=== PATIENT | male | born 2000 | race Caucasian/White ===

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

== ENCOUNTER 2024-12-06 14:31 | Emergency (ER) | payer BC, SELFPAY ==
[2024-12-06 14:32] VITALS: BP 128/90; PULSE 92; RESP 18; TEMP 36.6; O2SAT 99; BMI 27.1
--- NOTE | 2024-12-06 14:38 | RAD_ITS ---
EXAM: XR Right Tibia and Fibula, 2 Views CLINICAL INDICATION: INJURY TECHNIQUE: Frontal and lateral views of the right tibia and fibula. COMPARISON: No relevant prior studies available. FINDINGS: BONES/JOINTS: Unremarkable. No acute fracture. No dislocation. SOFT TISSUES: Unremarkable. No radiopaque foreign body. RAD/Tibia & Fibula 2 Views IMPRESSION: No acute fracture. Reading Location: [id number]
--- NOTE | 2024-12-06 14:38 | RAD_ITS ---
EXAM: XR Right Ankle Complete, 3 or More Views CLINICAL INDICATION: INJURY TECHNIQUE: Frontal, lateral and oblique views of the right ankle. COMPARISON: No relevant prior studies available. FINDINGS: BONES/JOINTS: See below. SOFT TISSUES: Soft tissue swelling without acute fracture. RAD/Ankle min 3 Views IMPRESSION: 1. Soft tissue swelling without acute fracture. 2. If symptoms persist, further evaluation with CT is recommended. Reading Location: [id number]
--- NOTE | 2024-12-06 15:33 | ED.VIS.LOWEX ---
HPI History of Present Illness HPI Narrative: Patient presents with right ankle injury that occurred last night. Patient states he was standing on a slope and somebody stepped up onto his knee. Patient states that his ankle hyperdorsiflexed. Patient states the pain has been constant since last night. Patient states it is worse with walking. Patient describes it as stabbing. Patient states nothing makes it better. Patient denies any paresthesias or weakness. Patient denies any other injuries. Chief Complaint: Lower Extremity Injury Informant: patient Onset/Context/Timing Onset: Yesterday Context: Sudden Onset Timing: Continuous Quality of Pain: Stabbing Location: Right ankle Worsened by: Walking Relieved by: Nothing Associated Symptoms Associated Symptoms: Negative for Parasthesia, Weakness or Loss of Funtion PFSH PFS Medical History (Updated 12/06/24 @ 15:[address] Reinaldo Evans DO) Asthma Superior labrum [id number] (SLAP) tear of shoulder Home Medications ?Medication ?Instructions ?Recorded ?Last Taken ?Type albuterol sulfate 90 mcg/actuation 1 puff inhalation Q6H PRN PRN 11/11/16 Unknown History aerosol inhaler (Ventolin HFA) Asthma fluticasone propionate 50 50 mcg IH PRN PRN Asthma 11/11/16 Unknown History mcg/actuation blister powder for inhalation (Flovent Diskus) montelukast 4 mg chewable tablet 4 mg PO DAILY 11/11/16 Unknown History (Singulair) ondansetron 4 mg disintegrating 4 mg PO Q8H PRN PRN Nausea #10 tabs 04/07/19 Unknown Rx tablet Allergy/AdvReac Type Severity Reaction Status Date / Time amoxicillin trihydrate (From Allergy Rash Verified 12/06/24 14:33 Augmentin) potassium clavulanate (From Allergy Rash Verified 12/06/24 14:33 Augmentin) Surgical History (Updated 12/06/24 @ 15:[address] Reinaldo Evans DO) Hx of shoulder surgery Social History Smoking Status: Never smoker ROS ROS ED Constitutional Constitutional ED: Denies chills or fever(s) Eyes Eyes: Denies blurry vision or change in vision ENT ENT ED: Denies rhinorrhea or sore throat Cardiovascular Cardiovascular: Denies chest pain or palpitations Respiratory/Chest Respiratory/Chest: Denies cough or dyspnea Gastrointestinal Gastrointestinal: Denies nausea or vomiting Genitourinary Genitourinary ED: Denies dysuria or hematuria Musculoskeletal Musculoskeletal: Denies back pain or neck pain Integumentary Denies abscess or rash Neurologic Neurologic: Denies headache(s) or weakness Allergic/Immunologic Allergic/Immunologic ED: Denies mouth swelling or urticaria EXAM Physical Exam Const Vital Signs: 12/06/24 14:32 Temperature 98 F Temperature Source Oral Pulse Rate 92 Respiratory Rate 18 Blood Pressure 128/90 H Blood Pressure Mean 102 Pulse Ox 99 Oxygen Delivery Method Room Air Positive well nourished and well developed General Appearance ED: well developed and NAD HEENT Reports moist mucous membranes normocephalic and atraumatic Neck full ROM and supple Extremity Extremity Narrative: There is tenderness over the right ankle. There is no edema or ecchymosis. There is no bony crepitus or step-off. There is no tenderness over the fifth metatarsal. There is no tenderness over the proximal fibula. Range of motion was limited in all motions of the right ankle secondary to pain. There is good pedal pulse noted. Capillary refill is less than 2 seconds in all digits. Sensation was intact to light touch in all digits. Neuro oriented x3, CN's II-XII intact bilaterally, moves all extremities and no sensory deficits noted Sensorium / Orientation: alert Motor Exam: strength 5/5 throughout Psych mental status grossly normal MDM MDM MDM Narrative Medical decision making narrative: Differential diagnosis includes sprain, fracture, and contusion. X-rays of the right ankle and right tibia and fibula will be obtained to assess for fracture. Radiography Diagnostic Testing: Clinical Impression(s) from Imaging Studies Ankle X-Ray 12/06/24 14:38 IMPRESSION: 1. Soft tissue swelling without acute fracture. 2. If symptoms persist, further evaluation with CT is recommended. Reading Location: [facility] Tibia/Fibula X-Ray 12/06/24 14:38 IMPRESSION: No acute fracture. Reading Location: [facility] X-rays of the right tibia and fibula were obtained. There are 2 views. On my independent interpretation, there is no acute fracture. There is no soft tissue swelling noted. Radiologist also interpreted the x-rays and agrees. X-rays of the right ankle were obtained. There are 3 views. On my independent interpretation, there is no acute fracture or dislocation noted. There is some soft tissue swelling noted. Radiologist also interpreted the x-rays and agrees. Treatment and Re-Evaluation Narrative: Patient and mother were advised of his findings. Patient was instructed to ice and elevate the right ankle. Patient was instructed to use Tylenol or ibuprofen as needed for pain. Patient was given a walking boot. Patient was instructed to follow-up with his primary care physician in 5 to 7 days. Patient and mother understood and were agreeable with the plan. All questions were answered. Discharge Plan Triage Chief Complaint: Lower Extremity Injury ED Provider: Reinaldo Evans Dx/Rx/DC Orders Clinical Impression: Right ankle sprain, History of asthma Instructions: ED Ankle Sprain (Adult) Prescriptions: No Action fluticasone propionate [Flovent Diskus] 50 MCG blister with device 50 mcg IH PRN PRN (Reason: Asthma) montelukast [Singulair] 4 MG tablet,chewable 4 mg PO DAILY albuterol sulfate [Ventolin HFA] 1 INHALER inhaler 1 puff inhalation Q6H PRN PRN (Reason: Asthma) ondansetron 4 MG tablet 4 mg PO Q8H PRN PRN (Reason: Nausea) Qty: 10 0RF Primary Care Provider: Care Physician,No Primary Referrals: Jackeline Hinton MD [Non-Staff] - 5-7 Days Print Language: Turkish Disposition Disposition: Home, Self Care
--- OUTSIDE RECORDS SUMMARY | 2024-12-06 15:42 | XMS RPT_ITS | CCD ---
Author Organization [facility] Care Team Providers Care Chief Supply Chain Officer Name Role Phone Mary Jane WICK, Jackeline Brewster Primary Care Provider Allergies Allergy Classification Reported Allergen(s) Allergy Type Date of Onset Reaction(s) Facility (3 sources) Amoxicillin / Clavulanate Drug Allergy 05-18-2011 Hives [facility] Work Phone: (3 sources) Chicot fruit Propensity to adverse reactions to drug 08-14-2014 Unknown [facility] (3 sources) Seasonal allergy Propensity to adverse reactions 10-14-2009 Intolerance [facility] Work Phone: Medications Completed/Discontinued Medications Medication Drug Class(es) Dates Sig (Normalized) Sig (Original) [id number] 200 actuat albuterol 0.09 mg/actuat metered dose inhaler (6 sources) beta2-Adrenergic Agonist Start: 02-12-2019 albuterol (PROVENTIL) 2.5 mg /3 mL (0.083 %) nebulizer solution 1 NEBULE EVERY 4 HOURS PRN WHEEZING. TIGHT COUGH 50 Vial 0 02/12/2019 Active Start: 02-12-2019 take 2 puff(s) by in halation every four hours as needed for cough albuterol HFA (PROVENTIL HFA, VENTOLIN HFA) 90 mcg/actuation inhaler Inhale 2 Puffs as instructed every 4 hours as needed for Wheezing/Shortness of Breath (tight cough). 1 Inhaler 1 02/12/2019 Active Comment on above: Inhale 2 Puffs as in structed every 4 hours as needed for Wheezing/Shortness of Breath (tight cough). 1 NEBULE EVERY 4 JOSIANE RS PRN WHEEZING. TIGHT COUGH 120 actuat fluticasone propionate 0.044 mg/actuat metered dose inhaler (3 sources) Corticosteroid Start: take 2 puff(s) by mouth twice daily fluticasone (FLOVENT) 44 mcg/actuation inhaler Inhale 2 Puffs as instructed twice daily. Rinse mouth and mask after use 1 Inhaler 3 02/12/2019 Active Comment on above: Inhale 2 Puffs as in structed twice daily. Rinse mouth and mask after use omeprazole 20 mg delayed release oral capsule (3 sources) Proton Pump Inhibitor Start: End: take 1 capsule by mouth once daily omeprazole (PRILOSEC) 20 mg capsule Take 1 capsule by mouth once daily. 30 capsule 2 07/02/2019 2021 Discontinued Comment on above: Take 1 capsule by mo [facility] once daily. sertraline 25 mg oral tablet (3 sources) Serotonin Reuptake Inhibitor Start: End: take 1 tablet by mouth once daily sertraline (ZOLOFT) 25 mg tablet Take 1 tablet by mouth once daily. 30 tablet 1 07/17/2019 2021 Discontinued Comment on above: [facility] Problems Active Problems Problem Classification Problem Date Documented Da te Episodic/Chronic Anxiety disorders (1 source) Mixed anxiety and depressive disorder; Translations: [Anxiety disorder, unspecified] Chronic Asthma (6 sources) Asthma; Translations: [Unspecified asthma, uncomplicated] Onset: 05-22-2012 05-22-2012 Chronic Past or Other Problems Problem Classification Problem Date Documented Da te Episodic/Chronic Other non-traumatic joint disorders (3 sources) Instability of right shoulder joint; Translations: [Other instability, right shoulder] Onset: 02-16-2020 02-16-2020 Episodic Other nutritional; endocrine; and metabolic disorders (3 sources) Childhood obesity; Translations: [Body mass index (BMI) pediatric, greater than or equal to 95th percentile for age] Onset: 12-05-2018 12-05-2018 Episodic Sprains and strains (3 sources) Sprain of shoulder; Translations: [Unspecified sprain of right shoulder joint, initial encounter] Onset: 11-24-2019 11-24-2019 Episodic Results Test Name Value Interpretation Reference Range Facility OV 2021 CNOV Office Visit (PEDSWS ) MILLSGABINO Kwong ([id number]) 02 M NFR Date Time Provider Department 08/18/21 10:00 AM JACKELINE SALINAS During your visit today, we recorded the following information about you: Temperature Pulse Respiration Blood pressure 97.9 degrees 64/minute 12/minute 132/70 Weight Height 92.7 kg 1.785 m Jackeline Salinas MD 08/19/2021 8:51 AM Signed CC-Depression (Seen Crescencio Forde yesterday and he recommended to come in too get started on medication) HPI 21 year-old here for treatment of depression and anxiety. Patient has had anxiety for several years but over the past 6 months has also started to experience depression symptoms. He has been working with psychologist Crescencio Gan, for therapy and is seeing him every other week. He has been in therapy with him for a few months. Recently they discussed starting a depression medication for him He has not wanted to start medications in the past but at this point does feel like it would be helpful. He has not had any suicide attempts. Occasionally he has had some suicidal ideation, last was about a week and a half ago. He does not have a plan for suicide. Patient graduated from high school and is currently working full-time at [employer]. Patient has had the following symptoms of depression for more than 2 weeks. 1.Depressed mood (feels sad, empty, hopeless (irritability) Yes. 2.Diminished interest in almost all activities most all days (apathy) Yes. 3.Significant weight loss or weight gain, decrease or increase in appetite daily No. 4.Difficulty falling asleep or staying asleep, or other sleep problems NA. 5.Psychomotor agitation or retardation?observed by others NA. 6.Fatigue or loss of energy most days Yes. 7.Feelings of worthlessness this or excessive or inappropriate guilt Yes. 8.Diminished ability to think or concentrate NA. 9. Recurrent thoughts of (not fear of dying) recurrent suicidal ideation without a specific plan or suicide attempt or specific plan for committing suicide No. Patient has had the following symptoms of anxiety occurring most days for over 6 months: Excessive anxiety or worry about many things including school, work or other?Yes. Are the above symptoms causing significant distress or impairment in social, occupational or academic areas? Yes. Any other reason for above symptoms (substance abuse, other medical condition)? NA. Other any other depressive disorder in patient? ( ex. Delusional disorder, schizophrenia etc. ) No. Any other anxiety disorder impatient (PTSD, anorexia, separation anxiety, situational anxiety) Family history?strong family history of anxiety and depression. No schizoaffective or bipolar disorders in the family. FAMILY HISTORY Problem Relation Age of Onset - Diabetes Paternal Grandfather - Hypertension Maternal Grandfather in 2011 - other (Rodriguez Parkinson White) Maternal Grandfather IMP Anxiety and depression (primary encounter diagnosis) PLAN Patient has signed medical release for communication with Crescencio andrade. We have called and left a message for them to send us his medical records The following assessments were completed, scored and reviewed with patient and family PHQ9- 10 FABIO 7- 10 Reviewed concept of depression and anxiety as biochemical imbalance of neurotransmitters and rationale for treatment. Instructed patient to contact office or [id number] after-hours promptly should condition worsen or any new symptoms appear. Reviewed choice of SSRI or SNRI. Discussed side effects, expected length of treatment, onset of action and serotonin withdrawal syndrome. Discussed in detail with patient and parent the FDA black box warning regarding the risk of increased suicidal ideation after starting on an SSRI in adolescents and patient agreed she would communicate this with parents, myself or other trusted adult if she felt this was happening. If applicable, reviewed suicide precautions, suicide risks and provided emergency numbers for [facility] psychiatric intake response Center ([facility]), [facility] 24 hour response number and suicide text [place] Hotline and 988 Psychotherapy recommended: Yes. Return visit in 3 week(s). Jackeline Salinas MD I spent a total of 40 minutes on the date of the service which included preparing to see the patient, [id number] patient care, completing clinical documentation, obtaining and/or reviewing separately obtained history, performing a medically appropriate examination, counseling and educating the patient/family/[facility], ordering medications, tests, or procedures, communicating with other HCPs (not separately reported), independently interpreting results (not separately reported), communicating results to the patient/family/caregiv er and care coordination (not separately rep (more content not included)... [facility] CNPMarissa 08-15-2021 CNPN Telephone (PEDSWS) GABINO MILLS ([id number]) 02 M NFR Date Time Provider Department 08/15/21 JACKELINE SALINAS PEDSWS During your visit today, we recorded the following information about you: Francesco Hawley RN 08/15/2021 4:46 PM Signed Mother calls stating that patient has been having issues with depression and would like to discuss re-starting on a medication. Patient is not currently with mother. Advised that we would need patient present to perform further triage and guidance. Mother voiced understanding and will have patient call back later. Francesco Hawley RN Allergies As of Date: 08/15/2021 Noted Allergy Reaction SEASONAL ALLERGIES 10/14/2009 5 - Intolerance Comments: Mother states that child has itchy,watery eyes and sneezing with the change of seasons. AUGMENTIN (AMOXICILLIN-POT CLAVUL*05/18/2011 4 - Hives Comments: 11/07 CITRUS AND DERIVATIVES 08/14/2014 16 - Unknown Comments: On elimination diet; no citrus per mother at this time Date Reviewed: 03/23/2020 Reviewed by: Cleo ([email or web address]) Yfn - Fully Assessed Reason for Visit: Depression [32] Prescriptions as of 08/15/2021 - sertraline (ZOLOFT) 25 mg tablet Take 1 tablet by mouth once daily. - omeprazole (PRILOSEC) 20 mg capsule Take 1 capsule by mouth once daily. - fluticasone (FLOVENT) 44 mcg/actuation inhaler Inhale 2 Puffs as instructed twice daily. Rinse mouth and mask after use - albuterol HFA (PROVENTIL HFA, VENTOLIN HFA) 90 mcg/actuation inhaler Inhale 2 Puffs as instructed every 4 hours as needed for Wheezing/Shortness of Breath (tight cough). - albuterol (PROVENTIL) 2.5 mg /3 mL (0.083 %) nebulizer solution 1 NEBULE EVERY 4 HOURS PRN WHEEZING. 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 Feels very good, more secure, minimal pain. Current Outpatient Medications on File Prior to Visit Medication Sig - albuterol HFA (PROVENTIL HFA, VENTOLIN HFA) 90 mcg/actuation inhaler Inhale 2 Puffs as instructed every 4 hours as needed for Wheezing/Shortness of Breath (tight cough). - albuterol (PROVENTIL) 2.5 mg /3 mL (0.083 %) nebulizer solution 1 NEBULE EVERY 4 HOURS PRN WHEEZING. TIGHT COUGH - sertraline (ZOLOFT) 25 mg tablet Take 1 tablet by mouth once daily. - omeprazole (PRILOSEC) 20 mg capsule Take 1 capsule by mouth once daily. (Patient taking differently: Take 20 mg by mouth as needed. ) - fluticasone (FLOVENT) 44 mcg/actuation inhaler Inhale 2 Puffs as instructed twice daily. Rinse mouth and mask after use No current facility-administered medications on file prior to visit. ALLERGIES Allergen Reactions - Seasonal Allergies Intolerance Mother states that child has itchy,watery eyes and sneezing with the change of seasons. - Augmentin [Amoxicil* Hives 11/07 - Chicot And Derivati* Unknown On elimination diet; no citrus per mother at this time Review of systems taken today, reviewed and documented in the chart for this visit Pertinent past medical history, past surgical history, social history reviewed from the initial visit with me Resp 20 Ht 175.3 cm (5' 9) Wt 86.2 kg (190 lb) BMI 28.06 kg/m? EXAMINATION: Location: Right shoulder Incision: Healing portals Tenderness: None Range of Motion: NT Strength: NT Positive Special Tests: NT Areas of concern: None IMAGING: None ASSESSMENT AND PLAN: 1. Instability of right shoulder joint - Continue physical therapy. Discussed overall treatment protocol and recovery timeframe. - Reviewed pain medication needs today. - Patient instructed to take NSAIDs and Tylenol for pain relief at prescription strength. These medications are generally not habit-forming and can be taken an an as-needed basis for pain. No long-term monitoring for side effects is available through my office and therefore no prescription was given, but the patient may obtain a prescription for prison use through their primary care physician. - Continue sling use. - Return in 4 weeks. Huong Arriaga MD Shoulder AND Elbow Surgeon Department of Orthopaedic Surgery [facility] Referring Provider: SELF [200] Allergies As of Date: 03/23/2020 Noted Allergy Reaction SEASONAL ALLERGIES 10/14/2009 5 - Intolerance Comments: Mother states that child has itchy,watery eyes and sneezing with the change of seasons. 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] Prescriptions as of 03/23/2020 Sig: ALBUTEROL SULFATE HFA 90 MCG/* Inhale 2 Puffs as instructed * ALBUTEROL SULFATE 2.5 MG/3 ML* 1 NEBULE EVERY 4 HOURS PRN WH* SERTRALINE 25 MG TABLET Take 1 tablet by mouth once d* OMEPRAZOLE 20 MG CAPSULE,GERMAN* Take 1 capsule by mouth once * Patient taking differently: Take 20 mg by mouth as needed* FLUTICASONE PROPIONATE 44 MCG* Inhale 2 Puffs as instructed * Problem List As Of Date 03/23/2020 Noted Resolved Croup [J05.0] 10/24/2004 07/27/2011 Esophageal reflux [K21.9] 10/24/2004 05/23/2012 Cellulitis and abscess of toe, unspecified [L03*11/03/2009 07/27/2011 Asthma [J45.909] 05/22/2012 Epididymitis [N45.1] 08/13/2014 03/05/2020 Moderate persistent asthma without complication* 8 Body mass index equal to or greater than 95th p*12/05/2018 Sprain of shoulder, right [S43.401A] 11/24/2019 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 Author Type: Physician Type: Progress Notes Filed: 03/23/2020 7:57 AM Note Text: PAIN EVALUATION No data found in the last 1 encounters. Feels very good, more secure, minimal pain. Current Outpatient Medications on File Prior to Visit Medication Sig - albuterol HFA (PROVENTIL HFA, VENTOLIN HFA) 90 mcg/actuation inhaler Inhale 2 Puffs as instructed every 4 hours as needed for Wheezing/Shortness of Breath (tight cough). - albuterol (PROVENTIL) 2.5 mg /3 mL (0.083 %) nebulizer solution 1 NEBULE EVERY 4 HOURS PRN WHEEZING. TIGHT COUGH - sertraline (ZOLOFT) 25 mg tablet Take 1 tablet by mouth once daily. - omeprazole (PRILOSEC) 20 mg capsule Take 1 capsule by mouth once daily. (Patient taking differently: Take 20 mg by mouth as needed. ) - fluticasone (FLOVENT) 44 mcg/actuation inhaler Inhale 2 Puffs as instructed twice daily. Rinse mouth and mask after use No current facility-administered medications on file prior to visit. ALLERGIES Allergen Reactions - Seasonal Allergies Intolerance Mother states that child has itchy,watery eyes and sneezing with the change of seasons. - Augmentin [Amoxicil* Hives 11/07 - Chicot And Derivati* Unknown On elimination diet; no citrus per mother at this time Review of systems taken today, reviewed and documented in the chart for this visit Pertinent past medical history, past surgical history, social history reviewed from the initial visit with me Resp 20 Ht 175.3 cm (5' 9) Wt 86.2 kg (190 lb) BMI 28.06 kg/m? EXAMINATION: Location: Right shoulder Incision: Healing portals Tenderness: None Range of Motion: NT Strength: NT Positive Special Tests: NT Areas of concern: None IMAGING: None ASSESSMENT AND PLAN: 1. Instability of right shoulder joint - Continue physical therapy. Discussed overall treatment protocol and recovery timeframe. - Reviewed pain medication needs today. - Patient instructed to take NSAIDs and Tylenol for pain relief at prescription strength. These medications are generally not habit-forming and can be taken an an as-needed basis for pain. No long-term monitoring for side effects is available through my office and therefore no prescription was given, but the patient may obtain a prescription for terminal operator use through their primary care physician. - Continue sling use. - Return in 4 weeks. Huong Arriaga MD Shoulder AND Elbow Surgeon Department of Orthopaedic Surgery [facility] PROGRESSon 02-25-2020 PROGRESS HNO ID: [id number] Author: Huong Arriaga Service: ? Author Type: Physician Type: Progress Notes Filed: 02/25/2020 3:52 PM Note Text: PAIN EVALUATION 02/20/2020 1410 Pain Level: 6 Description: Aching Duration Units: Weeks Frequency: Intermittent Intervention: Medication;Reposition; Relaxation Current Outpatient Medications on File Prior to Visit Medication Sig - docusate sodium (COLACE) 100 mg capsule Take 1 capsule by mouth twice daily. - ondansetron (ZOFRAN) 4 mg tablet Take 1 tablet by mouth every 8 hours as needed. - sertraline (ZOLOFT) 25 mg tablet Take 1 tablet by mouth once daily. - omeprazole (PRILOSEC) 20 mg capsule Take 1 capsule by mouth once daily. (Patient taking differently: Take 20 mg by mouth as needed. ) - ondansetron orally disintegrating (ZOFRAN ODT) 4 mg disintegrating tablet Take 1 tablet by mouth every 12 hours as needed. - fluticasone (FLOVENT) 44 mcg/actuation inhaler Inhale 2 Puffs as instructed twice daily. Rinse mouth and mask after use - albuterol HFA (PROVENTIL HFA, VENTOLIN HFA) 90 mcg/actuation inhaler Inhale 2 Puffs as instructed every 4 hours as needed for Wheezing/Shortness of Breath (tight cough). - albuterol (PROVENTIL) 2.5 mg /3 mL (0.083 %) nebulizer solution 1 NEBULE EVERY 4 HOURS PRN WHEEZING. TIGHT COUGH - loratadine (CLARITIN) 10 mg tablet Take 1 tablet by mouth once daily. (Patient taking differently: Take 10 mg by mouth once daily as needed. ) No current facility-administered medications on file prior to visit. ALLERGIES Allergen Reactions - Seasonal Allergies Intolerance Mother states that child has itchy,watery eyes and sneezing with the change of seasons. - Augmentin [Amoxicil* Hives 11/07 - Chicot And Derivati* Unknown On elimination diet; no citrus per mother at this time Review of systems taken today, reviewed and documented in the chart for this visit Pertinent past medical history, past surgical history, social history reviewed from the initial visit with me Resp 22 Ht 175.3 cm (5' 9) Wt 86.2 kg (190 lb) BMI 28.06 kg/m? EXAMINATION: Location: Right shoulder Incision: Healing Tenderness: Mild diffuse Range of Motion: NT Strength: NT Positive Special Tests: NT Areas of concern: None IMAGING: None ASSESSMENT AND PLAN: 1. Instability of right shoulder joint - May begin physical therapy. Discussed overall treatment protocol and recovery timeframe. - Reviewed pain medication needs today. - Patient instructed to take NSAIDs and Tylenol for pain relief at prescription strength. These medications are generally not habit-forming and can be taken an an as-needed basis for pain. No long-term monitoring for side effects is available through my office and therefore no prescription was given, but the patient may obtain a prescription for terminal operator use through their primary care physician. - Continue sling use. - Return in 4 weeks. Huong Arriaga MD Shoulder AND Elbow Surgeon Department of Orthopaedic Surgery [facility] CNOVon 02-20-2020 CNOV Office Visit (AGHWG1 ) GABINO MILLS ([id number]) 02 M NFR Date Time Provider Department 02/20/20 2:15 PM HUONG ARRIAGA [id number] During your visit today, we recorded the following information about you: Respiration Weight Height 22/minute 86.2 kg 1.753 m Huong Arriaga MD 02/25/2020 3:52 PM Signed PAIN EVALUATION 02/20/2020 1410 Pain Level: 6 Description: Aching Duration Units: Weeks Frequency: Intermittent Intervention: Medication;Reposition; Relaxation Current Outpatient Medications on File Prior to Visit Medication Sig - docusate sodium (COLACE) 100 mg capsule Take 1 capsule by mouth twice daily. - ondansetron (ZOFRAN) 4 mg tablet Take 1 tablet by mouth every 8 hours as needed. - sertraline (ZOLOFT) 25 mg tablet Take 1 tablet by mouth once daily. - omeprazole (PRILOSEC) 20 mg capsule Take 1 capsule by mouth once daily. (Patient taking differently: Take 20 mg by mouth as needed. ) - ondansetron orally disintegrating (ZOFRAN ODT) 4 mg disintegrating tablet Take 1 tablet by mouth every 12 hours as needed. - fluticasone (FLOVENT) 44 mcg/actuation inhaler Inhale 2 Puffs as instructed twice daily. Rinse mouth and mask after use - albuterol HFA (PROVENTIL HFA, VENTOLIN HFA) 90 mcg/actuation inhaler Inhale 2 Puffs as instructed every 4 hours as needed for Wheezing/Shortness of Breath (tight cough). - albuterol (PROVENTIL) 2.5 mg /3 mL (0.083 %) nebulizer solution 1 NEBULE EVERY 4 HOURS PRN WHEEZING. TIGHT COUGH - loratadine (CLARITIN) 10 mg tablet Take 1 tablet by mouth once daily. (Patient taking differently: Take 10 mg by mouth once daily as needed. ) No current facility-administered medications on file prior to visit. ALLERGIES Allergen Reactions - Seasonal Allergies Intolerance Mother states that child has itchy,watery eyes and sneezing with the change of seasons. - Augmentin [Amoxicil* Hives 11/07 - Chicot And Derivati* Unknown On elimination diet; no citrus per mother at this time Review of systems taken today, reviewed and documented in the chart for this visit Pertinent past medical history, past surgical history, social history reviewed from the initial visit with me Resp 22 Ht 175.3 cm (5' 9) Wt 86.2 kg (190 lb) BMI 28.06 kg/m? EXAMINATION: Location: Right shoulder Incision: Healing Tenderness: Mild diffuse Range of Motion: NT Strength: NT Positive Special Tests: NT Areas of concern: None IMAGING: None ASSESSMENT AND PLAN: 1. Instability of right shoulder joint - May begin physical therapy. Discussed overall treatment protocol and recovery timeframe. - Reviewed pain medication needs today. - Patient instructed to take NSAIDs and Tylenol for pain relief at prescription strength. These medications are generally not habit-forming and can be taken an an as-needed basis for pain. No long-term monitoring for side effects is available through my office and therefore no prescription was given, but the patient may obtain a prescription for terminal operator use through their primary care physician. - Continue sling use. - Return in 4 weeks. Huong Arriaga MD Shoulder AND Elbow Surgeon Department of Orthopaedic Surgery [facility] Referring Provider: SELF [200] Allergies As of Date: 02/20/2020 Noted Allergy Reaction SEASONAL ALLERGIES 10/14/2009 5 - Intolerance Comments: Mother states that child has itchy,watery eyes and sneezing with the change of seasons. 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] Prescriptions as of 02/20/2020 Sig: OXYCODONE-ACETAMINOPHE N 5 MG-* Take 1-2 tablets by mouth devin* DOCUSATE SODIUM 100 MG CAPSULE Take 1 capsule by mouth twice* ONDANSETRON HCL 4 MG TABLET Take 1 tablet by mouth every * SERTRALINE 25 MG TABLET Take 1 tablet by mouth once d* OMEPRAZOLE 20 MG CAPSULE,GERMAN* Take 1 capsule by mouth once * Patient taking differently: Take 20 mg by mouth as needed* ONDANSETRON 4 MG DISINTEGRATI* Take 1 tablet by mouth every * FLUTICASONE PROPIONATE 44 MCG* Inhale 2 Puffs as instructed * ALBUTEROL SULFATE HFA 90 MCG/* Inhale 2 Puffs as instructed * ALBUTEROL SULFATE 2.5 MG/3 ML* 1 NEBULE EVERY 4 HOURS PRN WH* LORATADINE 10 MG TABLET Take 1 tablet by mouth once d* Patient taking differently: Take 10 mg by mouth once kwabena* Problem List As Of Date 02/20/2020 Noted Resolved Croup [J05.0] 10/24/2004 07/27/2011 Esophageal reflux [K21.9] 10/24/2004 05/23/2012 Cellulitis and abscess of toe, unspecified [L03*11/03/2009 07/27/2011 Asthma [J45.909] 05/22/2012 Epididymitis [N45.1] 08/13/2014 Moderate persistent asthma without complication* 8 Body mass index equal to or greater than 95th p*12/05/2018 Sprain of shoulder, right [S43.401A] 11/24/2019 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 The pharmacy would only give him 18 pills on Sunday due to still under 18. I have put in a refill for another 18. Mom called requesting refill for patient's post-op pain. Patients last known Refill Date: 02-09-2020 Patient Phone numbers: [phone] (home) Request is for script(s) to be escript to pharmacy. Rudydomo Fanny Allergies As of Date: 02/13/2020 Noted Allergy Reaction SEASONAL ALLERGIES 10/14/2009 5 - Intolerance Comments: Mother states that child has itchy,watery eyes and sneezing with the change of seasons. 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] Order(s):oxyCODONE-cristina taminophen (PERCOCET) 5-325 mg tabletTake 1-2 tablets by mouth every 4 hours as needed for painDisp: 18 tabletRfl: 0 Prescriptions as of 02/13/2020 Sig: OXYCODONE-ACETAMINOPHE N 5 MG-* Take 1-2 tablets by mouth devin* DOCUSATE SODIUM 100 MG CAPSULE Take 1 capsule by mouth twice* ONDANSETRON HCL 4 MG TABLET Take 1 tablet by mouth every * SERTRALINE 25 MG TABLET Take 1 tablet by mouth once d* OMEPRAZOLE 20 MG CAPSULE,GERMAN* Take 1 capsule by mouth once * Patient taking differently: Take 20 mg by mouth as needed* ONDANSETRON 4 MG DISINTEGRATI* Take 1 tablet by mouth every * FLUTICASONE PROPIONATE 44 MCG* Inhale 2 Puffs as instructed * ALBUTEROL SULFATE HFA 90 MCG/* Inhale 2 Puffs as instructed * ALBUTEROL SULFATE 2.5 MG/3 ML* 1 NEBULE EVERY 4 HOURS PRN WH* LORATADINE 10 MG TABLET Take 1 tablet by mouth once d* Patient taking differently: Take 10 mg by mouth once kwabena* Problem List As Of Date 02/13/2020 Noted Resolved Croup [J05.0] 10/24/2004 07/27/2011 Esophageal reflux [K21.9] 10/24/2004 05/23/2012 Cellulitis and abscess of toe, unspecified [L03*11/03/2009 07/27/2011 Asthma [J45.909] 05/22/2012 Epididymitis [N45.1] 08/13/2014 Moderate persistent asthma without complication* 8 Body mass index equal to or greater than 95th p*12/05/2018 Sprain of shoulder, right [S43.401A] 11/24/2019 Prescriptions ordered this encounter Disp Refills Start End OXYCODONE-ACETAMINOPHE N 5 MG-325 MG * 18 t* 0 02/13/2020 02/20/2020 Sig: Take 1-2 tablets by mouth every 4 hours as needed for pain Medications Discontinued During This Encounter Prescriptions - oxyCODONE-acetaminophe n (PERCOCET) 5-325 mg tablet (Discontinued) Take 1-2 tablets by mouth every 4 hours as needed for up to 7 days. Encounter Status:Closed by HUONG ARRIAGA MD on 02/13/20 [facility] ANES POSTPROC EVALon 020 ANES POSTPROC EVAL HNO ID: [id number] Author: Franklin Obrien Service: ? Author Type: Physician Type: Anesthesia Postprocedure Evaluation Filed: 02/09/2020 3:23 PM Note Text: POST ANESTHESIA EVALUATION NOTE : 2002 Procedure Summary Date: 02/09/20 Room / Location: [facility] 03 [facility] Anesthesia Start: 0750 Anesthesia Stop: 918 Procedure: Right arthroscopic bankart repair (Right Shoulder) Diagnosis: Instability of right shoulder joint Surgeons: Huong Arriaga Responsible Provider: Franklin Obrien Anesthesia Type: general ASA Status: 2 Anesthesia Type: general Last vitals Vitals Value Taken Time BP 131/84 02/09/20 1059 Temp 36.8 ?C (98.2 ?F) 02/09/20 0917 Pulse 86 02/09/20 1055 Resp 18 02/09/20 1055 SpO2 95 % 02/09/20 1105 Vitals shown include unvalidated device data. Post Anesthesia Patient Status Anticipated Disposition: ICU unplanned admission. Neurological Status: aware and responsive. Pulmonary Status: breathing comfortably on room air Airway Control: returned to baseline unsupported. Cardiovascular Status: stable. Pain Management: clinically adequate Postoperative Hydration: acceptable. Intraoperative Events: no significant anesthesia events SIGNATURE: Franklin Obrien MD PATIENT NAME: Gabino Mills DATE: February 09, 2020 TIME: 3:23 PM CSN: [id number] [facility] ANES PRE-OPon 02-09-2020 ANES PRE-OP HNO ID: [id number] Author: Franklin Obrien Service: ? Author Type: Physician Type: Anesthesia Preprocedure Evaluation Filed: 02/09/2020 8:15 AM Note Text: ANESTHESIOLOGY DAY OF SURGERY NOTE : 2002 Procedure(s) (LRB): Right arthroscopic bankart repair (Right) Surgeon(s): Huong Arriaga Estimated body mass index is 28.06 kg/m? as calculated from the following: Height as of this encounter: 175.3 cm (5' 9). Weight as of this encounter: 86.2 kg (190 lb). Most recent hematocrit and potassium results: Hematocrit 44.4 06/06/2018 Potassium 4.2 06/06/2018 19 yo M hx controlled GERD, controlled asthma Relevant Problems PULMONARY (+) Asthma (+) Moderate persistent asthma without complication I - PHYSICAL EVALUATION AIRWAY Patient intubated: No. Mallampati: III. TM distance: >3 FB. Neck ROM: full ROM without neurological symptoms. Mouth opening: adequate. Thick neck: no DENTAL Dental findings: teeth intact. II - ANESTHESIA PLAN ASA Score: 2 Anesthetic Plan: general Airway type: ETT The patient is not a current smoker. NPO Status: adequate Postoperative analgesic plan: parenteral or oral opioids and peripheral nerve block. Anesthetic Risks, Benefits, Alternatives, Personnel Discussed. Consent obtained from: patient. Patient / Surrogate agrees to blood products: blood products not planned Significant changes in the patient condition since the History and Physical, not otherwise documented in primary service progress note: no. Potential Anesthesia issues that may suggest increased risk of complications or contraindication to planned procedure: none. Vitals Value Taken Time BP 133/78 02/09/20654 Pulse 80 02/09/20654 Resp 16 02/09/20654 Temp 36.2 ?C (97.2 ?F) 02/09/20654 SpO2 96 % 02/09/20654 Facility-Administered Medications as of 02/09/2020 Medication Dose Route Frequency - lidocaine 10 mg/mL (1 %) 1-2 mg injection (XYLOCAINE) 0.1-0.2 mL INTRADERMAL PRN - lactated ringers infusion 5-30 mL/hr INTRAVENOUS CONTINUOUS - [COMPLETED] vancomycin 1,000 mg in NaCl 0.9% 250 mL (VANCOCIN) 1 g INTRAVENOUS ONCE Outpatient Medications as of 02/09/2020 Medication Sig - sertraline (ZOLOFT) 25 mg tablet Take 1 tablet by mouth once daily. - omeprazole (PRILOSEC) 20 mg capsule Take 1 capsule by mouth once daily. (Patient taking differently: Take 20 mg by mouth as needed. ) - ondansetron orally disintegrating (ZOFRAN ODT) 4 mg disintegrating tablet Take 1 tablet by mouth every 12 hours as needed. - fluticasone (FLOVENT) 44 mcg/actuation inhaler Inhale 2 Puffs as instructed twice daily. Rinse mouth and mask after use - albuterol HFA (PROVENTIL HFA, VENTOLIN HFA) 90 mcg/actuation inhaler Inhale 2 Puffs as instructed every 4 hours as needed for Wheezing/Shortness of Breath (tight cough). - albuterol (PROVENTIL) 2.5 mg /3 mL (0.083 %) nebulizer solution 1 NEBULE EVERY 4 HOURS PRN WHEEZING. TIGHT COUGH - loratadine (CLARITIN) 10 mg tablet Take 1 tablet by mouth once daily. (Patient taking differently: Take 10 mg by mouth once daily as needed. ) - docusate sodium (COLACE) 100 mg capsule Take 1 capsule by mouth twice daily. - ondansetron (ZOFRAN) 4 mg tablet Take 1 tablet by mouth every 8 hours as needed. - oxyCODONE-acetaminophe n (PERCOCET) 5-325 mg tablet Take 1-2 tablets by mouth every 4 hours as needed for up to 7 days. I have interviewed and examined the patient. I have reviewed the medical record and/or the pre-anesthesia evaluation, pertinent labs, and test results. This contains updated information obtained within 48 hours of Surgery/Procedure. SIGNATURE: Franklin Obrien MD PATIENT NAME: Gabino Mills DATE: February 09, 2020 TIME: 8:14 AM CSN: [id number] [facility] 02-09-2020 [facility] Telephone (AGPOB1) MILLSGABINO Kwong ([id number]) 4 M [facility] Date Time Provider Department 02/09/20 HUONG ARRIAGA [facility] During your visit today, we recorded the following information about you: Jacqueline Escobedo 02/09/2020 9:12 AM Earlene Bowers states insurance will only cover 18 Percocet to be dispensed due to minor age and also wants to put not to exceed 6 tablets a day for 3 day supply to start. I let her know that this was okay per your direction. She states she will only dispense 18 pills today. Allergies As of Date: 02/09/2020 Noted Allergy Reaction SEASONAL ALLERGIES 10/14/2009 5 - Intolerance Comments: Mother states that child has itchy,watery eyes and sneezing with the change of seasons. AUGMENTIN (AMOXICILLIN-POT CLAVUL*05/18/2011 4 - Hives Comments: 11/07 CITRUS AND DERIVATIVES 08/14/2014 16 - Unknown Comments: On elimination diet; no citrus per mother at this time Date Reviewed: 02/09/2020 Reviewed by: Tasia (Rn) FIORDALIZA Mcmahon - Fully Assessed Reason for Visit: Refill Request [94] Cmt: Question- Initial post-op Rx Prescriptions as of 02/09/2020 Sig: DOCUSATE SODIUM 100 MG CAPSULE Take 1 capsule by mouth twice* ONDANSETRON HCL 4 MG TABLET Take 1 tablet by mouth every * OXYCODONE-ACETAMINOPHE N 5 MG-* Take 1-2 tablets by mouth devin* SERTRALINE 25 MG TABLET Take 1 tablet by mouth once d* OMEPRAZOLE 20 MG CAPSULE,GERMAN* Take 1 capsule by mouth once * Patient taking differently: Take 20 mg by mouth as needed* ONDANSETRON 4 MG DISINTEGRATI* Take 1 tablet by mouth every * FLUTICASONE PROPIONATE 44 MCG* Inhale 2 Puffs as instructed * ALBUTEROL SULFATE HFA 90 MCG/* Inhale 2 Puffs as instructed * ALBUTEROL SULFATE 2.5 MG/3 ML* 1 NEBULE EVERY 4 HOURS PRN WH* LORATADINE 10 MG TABLET Take 1 tablet by mouth once d* Patient taking differently: Take 10 mg by mouth once kwabena* Problem List As Of Date 02/09/2020 Noted Resolved Croup [J05.0] 10/24/2004 07/27/2011 Esophageal reflux [K21.9] 10/24/2004 05/23/2012 Cellulitis and abscess of toe, unspecified [L03*11/03/2009 07/27/2011 Asthma [J45.909] 05/22/2012 Epididymitis [N45.1] 08/13/2014 Moderate persistent asthma without complication* 8 Body mass index equal to or greater than 95th p*12/05/2018 Sprain of shoulder, right [S43.401A] 11/24/2019 Encounter Status:Closed by JACQUELINE ESCOBEDO on 02/09/20 [facility] HISTORY PHYSICALon 0 HISTORY PHYSICAL HNO ID: [id number] Author: Huong Arriaga Service: Orthopaedic Surgery Author Type: Physician Type: HANDP Filed: 02/09/2020 7:33 AM Note Text: UPDATED HISTORY AND PHYSICAL EXAMINATION SERVICE DATE: 02/09/2020 SERVICE TIME: 7:33 AM PHYSICAL EXAM MUST BE COMPLETED ON ADMISSION The History and Physical (completed in the past 30 days) has been reviewed and the patient has been examined. The contents accurately reflect the patient's condition with the following additions or revisions since the HANDP was completed. Examination indicates no changes. This HANDP can be found in the Electronic Medical Record dated 01/30/2020. SIGNATURE: Huong Arriaga MD PATIENT NAME: Gabino Mills DATE: February 09, 2020 TIME: 7:33 AM PAGER: [facility] NURSING PROGon 02-09-2020 NURSING PROG HNO ID: [id number] Author: Tasia (Rn) FIORDALIZA Mcmahon Service: ? Author Type: Registered Nurse Type: Nursing Progress Note Filed: 02/09/2020 10:31 AM Note Text: Up to recliner, moved well. Became nauseated and vomitied approx 100 cc of clear fluid. Medication given [facility] OPERATIVE NOon 02-09-2020 OPERATIVE NO HNO ID: [id number] Author: Huong rAriaga Service: Orthopaedic Surgery Author Type: Physician Type: Operative Report Filed: 02/09/2020 8:58 AM Note Text: OPERATIVE/PROCEDURE REPORT LOG ID: [id number] SURGERY/PROCEDURE DATE: 02/09/2020 INCISION/PROCEDURE START TIME: 8:20 AM INCISION CLOSE/PROCEDURE END TIME: SURGEON(S)/PROCEDURALI ST(S) AND PHOTO TECHNICIAN(S): Surgeon(s) and Role: * Huong Arriaga - Primary * Isaiah Trujillo - Resident - Assisting No Additional Staff SURGERY/PROCEDURE(S): Right shoulder arthroscopic anterior capsulorraphy ANESTHESIA: General SURGERY/PROCEDURE DETAILS: Gabino Mills is a 19 year old young man who presented with right shoulder pain and recurrent instability that had been limiting the ability to perform daily activities and had not responded to conservative management. Exam findings were concerning for anterior instability. I offered arthroscopic surgery for the purposes of pain relief and improved function of the shoulder. The risks, benefits, and alternatives to the procedure were discussed in detail in the office prior to surgery, and the patient expressed agreement and understanding with the plan. The patient was greeted in the preoperative holding area and identified by name and date of . An interscalene block was administered. The patient was taken to the operating room and transferred to the operating table in the supine position. General anesthesia was induced with endotracheal intubation. The patient was placed in the beach chair position with bilateral lower extremities padded and bilateral lower extremity sequential compression devices were applied. Intravenous antibiotic was given. The right shoulder and upper extremity were prepped and draped in a sterile fashion. A time out procedure was performed and this confirmed the correct patient, site, and procedure to be performed. I began by performing a diagnostic arthroscopy of the shoulder using a standard posterior portal. Examination of the humeral and glenoid cartilage revealed Outerbridge grade 0 humerus and grade 0 glenoid. The glenoid labrum was not torn. Long head of biceps tendon was visualized and there was no tearing of the tendon itself. I made an anterior portal under direct visualization using outside in technique after first localizing with a spinal needle. A probe was inserted into the joint and this was used to test the integrity of intra-articular structures. The long head of biceps tendon anchor was found to be stable. Medial sling was intact as the biceps exited normally out of the groove. Subscapularis tendon was stretched and noticeably eroded centrally, indicating recurrent anterior trauma due to instability. The anterior and inferior structures were stretched but not patulous. Supraspinatus was intact without tearing. I examined the posterior shoulder and made a posterolateral portal for probing. There was no tearing of the posterior labrum. I elected to proceed with anterior capsulorraphy. Two portals were made within the rotator interval and cannulae were placed. Using a suture lasso, I grasped tissue inferior to the glenoid and used this to begin my capsulorraphy. Suture was passed in the standard fashion and the inferior glenohumeral ligament was reduced to the anterior-inferior glenoid rim. I then proceeded to pass suture twice more in the same way, effecting a closure of the capsular structures including inferior glenohumeral and middle glenohumeral ligaments. This produced a tightening of the anterior shoulder, and the humeral head was noticeably pushed posteriorly after the final anchor was placed. The shoulder was then stable to [id number] testing. Final pictures were taken and the arthroscope was removed from the joint. Portal incisions were closed with Monocryl suture. A dry sterile dressing was applied. The patient was placed in a sling and swathe and awakened from anesthesia, and was transferred to the cart and taken to recovery in good condition. PRE-OP/PRE-PROCEDURE DIAGNOSIS: Right shoulder recurrent instability POST-OP/POST-PROCEDURE DIAGNOSIS: Same as Preop ESTIMATED BLOOD LOSS: 1 mls SPECIMENS: None IMPLANTABLE DEVICES: Arthrex Push-lock anchor x 3 DRAINS: None COMPLICATIONS: None PARTICIPATION IN SURGERY/PROCEDURE: I/primary surgeon/proceduralist performed the procedure with assistance. SIGNATURE: Huong Arriaga MD PATIENT NAME: Gabino Azars DATE: February 09, 2020 TIME: 8:53 AM PAGER/CONTACT #: [facility] 02-06-2020 [facility] Telephone (AGPOB1) LINAGABINO ([id number]) 4 M NFR Date Time Provider Department 02/06/20 [facility] During your visit today, we recorded the following information about you: Jacqueline Escobedo 02/06/2020 4:06 PM Signed I just LVM for mom reminding her of surgery date and time on Sunday at our outpatient sx center and gave address again. I told her to have Gabino arrive no later than 6:30 am and that he should not eat or drink after midnight. I also reminded her of his Covid test appt tomorrow at our [place] location and left address again for that location as well. Allergies As of Date: 02/06/2020 Noted Allergy Reaction SEASONAL ALLERGIES 10/14/2009 5 - Intolerance Comments: Mother states that child has itchy,watery eyes and sneezing with the change of seasons. AUGMENTIN (AMOXICILLIN-POT CLAVUL*05/18/2011 4 - Hives Comments: 11/07 CITRUS AND DERIVATIVES 08/14/2014 16 - Unknown Comments: On elimination diet; no citrus per mother at this time Date Reviewed: 01/30/2020 Reviewed by: Celi ([facility]) Gabriella - Fully Assessed Reason for Visit: Preparations For Surgery [898] Cmt: Sx reminder call Prescriptions as of 02/06/2020 Sig: SERTRALINE 25 MG TABLET Take 1 tablet by mouth once d* OMEPRAZOLE 20 MG CAPSULE,GERMAN* Take 1 capsule by mouth once * Patient taking differently: Take 20 mg by mouth as needed* ONDANSETRON 4 MG DISINTEGRATI* Take 1 tablet by mouth every * FLUTICASONE PROPIONATE 44 MCG* Inhale 2 Puffs as instructed * ALBUTEROL SULFATE HFA 90 MCG/* Inhale 2 Puffs as instructed * ALBUTEROL SULFATE 2.5 MG/3 ML* 1 NEBULE EVERY 4 HOURS PRN WH* LORATADINE 10 MG TABLET Take 1 tablet by mouth once d* Patient taking differently: Take 10 mg by mouth once kwabena* Problem List As Of Date 02/06/2020 Noted Resolved Croup [J05.0] 10/24/2004 07/27/2011 Esophageal reflux [K21.9] 10/24/2004 05/23/2012 Cellulitis and abscess of toe, unspecified [L03*11/03/2009 07/27/2011 Asthma [J45.909] 05/22/2012 Epididymitis [N45.1] 08/13/2014 Moderate persistent asthma without complication* 8 Body mass index equal to or greater than 95th p*12/05/2018 Sprain of shoulder, right [S43.401A] 11/24/2019 Encounter Status:Closed by JACQUELINE ESCOBEDO on 02/06/20 [facility] 02-02-2020 [facility] Telephone (AGPOB1) GABINO MILLS ([id number]) 4 M NFR Date Time Provider Department 02/02/20 HUONG ARRIAGAPOB1 During your visit today, we recorded the following information about you: Jacqueline Escobedo 02/02/2020 3:13 PM Signed Pt is scheduled for Right Bankart procedure on February 08. Please sign PT order. Thanks Allergies As of Date: 02/02/2020 Noted Allergy Reaction SEASONAL ALLERGIES 10/14/2009 5 - Intolerance Comments: Mother states that child has itchy,watery eyes and sneezing with the change of seasons. 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] Order(s):CONSULT TO PHYSICAL THERAPY [9032] Order #: [id number]: 1 FUTURE Prescriptions as of 02/02/2020 Sig: SERTRALINE 25 MG TABLET Take 1 tablet by mouth once d* OMEPRAZOLE 20 MG CAPSULE,GERMAN* Take 1 capsule by mouth once * Patient taking differently: Take 20 mg by mouth as needed* ONDANSETRON 4 MG DISINTEGRATI* Take 1 tablet by mouth every * FLUTICASONE PROPIONATE 44 MCG* Inhale 2 Puffs as instructed * ALBUTEROL SULFATE HFA 90 MCG/* Inhale 2 Puffs as instructed * ALBUTEROL SULFATE 2.5 MG/3 ML* 1 NEBULE EVERY 4 HOURS PRN WH* LORATADINE 10 MG TABLET Take 1 tablet by mouth once d* Patient taking differently: Take 10 mg by mouth once kwabena* Problem List As Of Date 02/02/2020 Noted Resolved Croup [J05.0] 10/24/2004 07/27/2011 Esophageal reflux [K21.9] 10/24/2004 05/23/2012 Cellulitis and abscess of toe, unspecified [L03*11/03/2009 07/27/2011 Asthma [J45.909] 05/22/2012 Epididymitis [N45.1] 08/13/2014 Moderate persistent asthma without complication* 8 Body mass index equal to or greater than 95th p*12/05/2018 Sprain of shoulder, right [S43.401A] 11/24/2019 Encounter Status:Closed by HUONG ARRIAGA MD on 02/02/20 [facility] (AGHWW1) GABINO MILLS ([id number]) 02 NFR Date Time Provider Department 01/30/20 HUONG ARRIAGA A[facility]WW1 During your visit today, we recorded the following information about you: Bruna Soto 01/30/2020 9:32 AM Signed I called and spoke with Juani Gabino's mother and emergency contact. I informed her of Pre-surgery testing and covid appointments. I gave her times, dates and locations. Appointments confirmed. Bruna Soto Allergies As of Date: 01/30/2020 Noted Allergy Reaction SEASONAL ALLERGIES 10/14/2009 5 - Intolerance Comments: Mother states that child has itchy,watery eyes and sneezing with the change of seasons. AUGMENTIN (AMOXICILLIN-POT CLAVUL*05/18/2011 4 - Hives Comments: 11/07 CITRUS AND DERIVATIVES 08/14/2014 16 - Unknown Comments: On elimination diet; no citrus per mother at this time Date Reviewed: 01/23/2020 Reviewed by: Froy Earl (Tech) - Fully Assessed Reason for Visit: Patient Update [1234] Cmt: Pre-surgery appointment and Covid testing appointment Prescriptions as of 01/30/2020 Sig: SERTRALINE 25 MG TABLET Take 1 tablet by mouth once d* OMEPRAZOLE 20 MG CAPSULE,GERMAN* Take 1 capsule by mouth once * ONDANSETRON 4 MG DISINTEGRATI* Take 1 tablet by mouth every * FLUTICASONE PROPIONATE 44 MCG* Inhale 2 Puffs as instructed * ALBUTEROL SULFATE HFA 90 MCG/* Inhale 2 Puffs as instructed * ALBUTEROL SULFATE 2.5 MG/3 ML* 1 NEBULE EVERY 4 HOURS PRN WH* LORATADINE 10 MG TABLET Take 1 tablet by mouth once d* Patient taking differently: Take 10 mg by mouth once kwabena* Problem List As Of Date 01/30/2020 Noted Resolved Croup [J05.0] 10/24/2004 07/27/2011 Esophageal reflux [K21.9] 10/24/2004 05/23/2012 Cellulitis and abscess of toe, unspecified [L03*11/03/2009 07/27/2011 Asthma [J45.909] 05/22/2012 Epididymitis [N45.1] 08/13/2014 Moderate persistent asthma without complication* 8 Body mass index equal to or greater than 95th p*12/05/2018 Sprain of shoulder, right [S43.401A] 11/24/2019 Encounter Status:Closed by BRUNA SOTO on 01/30/20 [facility] HISTORY PHYSICALon 0 HISTORY PHYSICAL HNO ID: [id number] Author: Celi Quiroz Service: ? 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 Pt with right instability of shoulder presents for PST, OR with Dr Arriaga 02/09/2020. METS: Patient denies any chest pain or undue shortness of breath with the above physical activity. FUNCTIONAL STATUS: Independent PAST MEDICAL HISTORY Diagnosis Date - Depression - GERD (gastroesophageal reflux disease) - NEGATIVE HISTORY OF normal color vision 2012 - PMH - PAST MEDICAL HISTORY OF 2003 left foot fracture - PM - PAST MEDICAL HISTORY OF 03/03 [facility] hosp for croup - Routine or ritual circumcision - Unspecified asthma(493.90) PAST SURGICAL HISTORY Procedure Laterality Date - CIRCUMCISION,CLAMP,NEW BORN as FAMILY HISTORY Problem Relation Age of Onset - Diabetes Paternal Grandfather - Hypertension Maternal Grandfather in 2011 - other (Rodriguez Parkinson White) Maternal Grandfather Social History Tobacco Use - Smoking status: Passive Smoke Exposure - Never Smoker - Smokeless tobacco: Never Used - Tobacco comment: household members smoke outside Substance Use Topics - Alcohol use: No - Drug use: No Prior to Admission medications as of 01/30/20 1440 Medication Sig Last Dose Taking sertraline (ZOLOFT) 25 mg tablet Take 1 tablet by mouth once daily. Yes omeprazole (PRILOSEC) 20 mg capsule Take 1 capsule by mouth once daily. Patient taking differently: Take 20 mg by mouth as needed. Yes fluticasone (FLOVENT) 44 mcg/actuation inhaler Inhale 2 Puffs as instructed twice daily. Rinse mouth and mask after use Yes albuterol HFA (PROVENTIL HFA, VENTOLIN HFA) 90 mcg/actuation inhaler Inhale 2 Puffs as instructed every 4 hours as needed for Wheezing/Shortness of Breath (tight cough). Yes albuterol (PROVENTIL) 2.5 mg /3 mL (0.083 %) nebulizer solution 1 NEBULE EVERY 4 HOURS PRN WHEEZING. TIGHT COUGH Yes loratadine (CLARITIN) 10 mg tablet Take 1 tablet by mouth once daily. Patient taking differently: Take 10 mg by mouth once daily as needed. Yes ondansetron orally disintegrating (ZOFRAN ODT) 4 mg disintegrating tablet Take 1 tablet by mouth every 12 hours as needed. ALLERGIES Allergen Reactions - Seasonal Allergies Intolerance Mother states that child has itchy,watery eyes and sneezing with the change of seasons. - Augmentin [Amoxicil* Hives 11/07 - Chicot And Derivati* Unknown On elimination diet; no citrus per mother at this time COMPLETE REVIEW OF SYSTEMS: GENERAL: No weight loss, malaise or fevers RESPIRATORY: Negative for cough, hemoptysis, wheezing, COPD, dyspnea or shortness of breath, +Asthma +allergic rhinitis states asthma under good control takes inhalers prn Cardiac: Negative for chest pain, leg swelling, hypertension, CHF or palpitations GI: No nausea, vomiting, or diarrhea, occasional GERD symptoms : No history of dysuria, frequency or incontinence MUSCULOSKELETAL: see HPI PSYCH: depression ENDOCRINE:Denies diabetes and thyroid problems NEURO: No history of headaches, syncope, paralysis, seizures or tremors Negative for stroke, seizures or headaches. Heme/Onc: No hx blood clots, clotting disorders, or cancer Objective PHYSICAL EXAM: 01/30/20 1443 BP: 105/75 BP Site: Left Arm BP Position: Sitting BP Cuff Size: Regular Adult Pulse: 77 Resp: 20 Temp: 36.6 ?C (97.8 ?F) TempSrc: Temporal Artery SpO2: 97% Weight: 86.2 kg (190 lb) Height: 176.5 cm (5' 9.5) Body mass index is 27.66 kg/m?. MENTAL STATUS: alert, oriented to person, place and time HEENT: Normocephalic/atraumat ic, no lymphadenopathy, neck supple pharynx clear LUNGS: Lungs clear to auscultation, Good diaphragmatic excursion CARDIAC: Normal S1 and S2; no rubs, murmurs, or gallops ABDOMEN: Soft, nontender EXTREMITIES: Extremities normal, no deformities, edema, clubbing or skin discoloration. Good capillary refill. No open areas right shoulder right radial pulse +2 Diagnostic tests reviewed for today's visit: Lab Value Units Date High Low HB No results within date range. HCT No results within date range. WBC No results within date range. PLT No results within date range. NA No results within date range. K No results within date range. GLUC No results within date range. BUN No results within date range. CREAT No results within date range. PTSEC No results within date range. INR No results within date range. APTT No results within date range. ALT No results within date range. AST No results within date range. TBILI No results within date range. TSH No results within date range. Lab Value Units Date High Low HCGQT No results within date range. UHCG No results within date range. HCG, BODY* No results within date range. Lab Value Units Date High Low ABORHD No results within date range. ABSCREEN No results within date range. 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] Planned Procedure: Right arthroscopic bankart repair Planned Anesthetic: General and interscalene block SIGNATURE: Celi Quiroz APRN.CNP PATIENT NAME: Gabino Mills DATE: January 30, 2020 TIME: 8:10 AM PAGER/CONTACT #: [facility] HOSPon 01-27-2020 HOSP Patient:Gabino Mills MRN: Height:5' 9.5(1.765 m) Weight:190 lb (86.183 kg) Outpatient Medications as of 02/09/20: docusate sodium (COLACE) 100 mg capsule ondansetron (ZOFRAN) 4 mg tablet oxyCODONE-acetaminophe n (PERCOCET) 5-325 mg tablet sertraline (ZOLOFT) 25 mg tablet omeprazole (PRILOSEC) 20 mg capsule ondansetron orally disintegrating (ZOFRAN ODT) 4 mg disintegrating tablet fluticasone (FLOVENT) 44 mcg/actuation inhaler albuterol HFA (PROVENTIL HFA, VENTOLIN HFA) 90 mcg/actuation inhaler albuterol (PROVENTIL) 2.5 mg /3 mL (0.083 %) nebulizer solution loratadine (CLARITIN) 10 mg tablet Admission/Clinic Administered Medications as of 02/09/20: lidocaine 10 mg/mL (1 %) 1-2 mg injection (XYLOCAINE) lactated ringers infusion vancomycin 1,000 mg in NaCl 0.9% 250 mL (VANCOCIN) Problem List: Asthma [J45.909] Epididymitis [N45.1] Moderate persistent asthma without complication [J45.40] 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 I told her to have Gabino arrive no later than 6:30 am and that he should not eat or drink after midnight. I also reminded her of his Covid test appt tomorrow at our [place] location and left address again for that location as well. Progress Notes ([place] [facility]): Jacqueline Escobedo 02/02/2020 3:13 PM Signed Pt is scheduled for Right Bankart procedure on February 08. Please sign PT order. Thanks [facility] PROGRESSon 01-26-2020 PROGRESS HNO ID: [id number] Author: Huong rAriaga Service: ? Author Type: Physician Type: Progress Notes Filed: 01/26/2020 3:50 PM Note Text: ORTHOPAEDIC SHOULDER AND ELBOW SERVICE HISTORY AND PHYSICAL EXAM CHIEF COMPLAINT: Right shoulder pain and instability REFERRING PROVIDER: SELF HISTORY OF PRESENT ILLNESS: Gabino Mills is a 19 year old young man who presents with pain in the right shoulder. PAIN EVALUATION 01/23/2020 1521 Pain Level: 5 Pain Location: ? RT SHOULDER Description: Aching Duration Amount of Time: ? 3 Duration Units: Months Frequency: Continuous Intervention: Medication;Reposition; Relaxation Injury: Several previous dislocations, now having pain with any lifting Previous surgery: No Previous treatments: Rest, medication, physical therapy Patient otherwise has been in usual state of health. PAST MEDICAL HISTORY: PAST MEDICAL HISTORY Diagnosis Date - NEGATIVE HISTORY OF normal color vision 2012 - PMH - PAST MEDICAL HISTORY OF 2003 left foot fracture - PMH - PAST MEDICAL HISTORY OF 03/03 ion hosp for croup - Routine or ritual circumcision - Unspecified asthma(493.90) PAST SURGICAL HISTORY: PAST SURGICAL HISTORY Procedure Laterality Date - CIRCUMCISION,CLAMP,NEW BORN SOCIAL HISTORY: Social History Tobacco Use - Smoking status: Passive Smoke Exposure - Never Smoker - Smokeless tobacco: Never Used - Tobacco comment: household members smoke outside Substance Use Topics - Alcohol use: No - Drug use: No ALLERGIES: ALLERGIES Allergen Reactions - Seasonal Allergies Intolerance Mother states that child has itchy,watery eyes and sneezing with the change of seasons. - Augmentin [Amoxicil* Hives 11/07 - Chicot And Derivati* Unknown On elimination diet; no citrus per mother at this time MEDICATIONS: Current Outpatient Medications on File Prior to Visit Medication Sig - sertraline (ZOLOFT) 25 mg tablet Take 1 tablet by mouth once daily. - omeprazole (PRILOSEC) 20 mg capsule Take 1 capsule by mouth once daily. - ondansetron orally disintegrating (ZOFRAN ODT) 4 mg disintegrating tablet Take 1 tablet by mouth every 12 hours as needed. - fluticasone (FLOVENT) 44 mcg/actuation inhaler Inhale 2 Puffs as instructed twice daily. Rinse mouth and mask after use - albuterol HFA (PROVENTIL HFA, VENTOLIN HFA) 90 mcg/actuation inhaler Inhale 2 Puffs as instructed every 4 hours as needed for Wheezing/Shortness of Breath (tight cough). - albuterol (PROVENTIL) 2.5 mg /3 mL (0.083 %) nebulizer solution 1 NEBULE EVERY 4 HOURS PRN WHEEZING. TIGHT COUGH - loratadine (CLARITIN) 10 mg tablet Take 1 tablet by mouth once daily. (Patient taking differently: Take 10 mg by mouth once daily as needed. ) No current facility-administered medications on file prior to visit. PHYSICAL EXAMINATION: Resp 21 Ht 175.3 cm (5' 9) Wt 87.5 kg (193 lb) BMI 28.50 kg/m? EXAM: Shoulder Musculoskeletal Exam General Constitutional: appears stated age Labored breathing: no Psychiatric: normal mood and affect and no acute distress Neurological: alert and oriented x3 Skin: intact Lymphadenopathy: present Inspection Inspection - Right Ecchymosis: none Peripheral edema: none Atrophy: none Deformity: none Symmetry: symmetric Masses: none Skin tenting: none Prior incision: none Palpation Palpation - Right Crepitus: mild Increased warmth: none Tenderness: present Anterior shoulder: moderate Posterior shoulder: moderate Clavicle: none AC joint: none Sternoclavicular joint: none Rotator cuff: mild Greater tuberosity: mild Trapezius: mild Medial scapula: none Superior pole of scapula: none Inferior pole of scapula: none Bicipital groove: mild Proximal biceps: mild Range of Motion Range of Motion - Right Active ROM: abnormal and pain Passive ROM: abnormal and pain Active forward elevation: 140 Passive forward elevation: 150 Shoulder active abduction: 90 Passive abduction: 90 Active external rotation at side: 60 Passive external rotation at side: 60 Active external rotation in abduction: 60 Passive external rotation in abduction: 60 Active internal rotation in abduction: 40 Passive internal rotation in abduction: 40 Internal rotation: T12 Strength Strength - Right External rotation: 5/5 Internal rotation: 5/5 Abduction: 5/5 Neurovascular Neurovascular - Right Right shoulder nerve sensation is normal. Axillary nerve sensory distribution: normal Scapula Scapula - Right Position: normal Dyskinesia: none Winging: none Special Tests Special Tests - Right Rotator Cuff Signs - Right Neer's test: positive Duffy test: negative Supraspinatus: negative Belly press test: negative Painful arc test: negative Lift-off sign: negative Drop arm test: negative Biceps/naman Signs - Right Natural Bridge's test: positive Clicking/popping: negative Speed's test: positive AC Joint Signs - Right Active horizontal adduction pain: negative Single finger test: negative Instability Signs - Right Joint laxity: negative Sulcus translation: negative Anterior apprehension test: positive Anterior translation test: positive Posterior apprehension test: negative Posterior translation test: negative Relocation test: positive IMAGING: I personally reviewed the MRI of the right shoulder in the office today, and I am in agreement with the radiologist's interpretation with the following modifications: None * * *Final Report* * * DATE OF EXAM: Jan 15 2020 ?8:28AM ? [facility] ? 0240 ?- ?MRI SHOULDER WO IVCON RT ?/ PROCEDURE REASON: Right shoulder pain, unspecified chronicity ?? ? * * * * Physician Interpretation * * * * ?EXAMINATION: ?MRI SHOULDER WO IVCON RT HISTORY: ?Right shoulder pain, unspecified chronicity NKI No sx Pain AND limited rom rt shoulder Right shoulder pain, unspecified chronicity ? ?Mild?tenderness about the bicipital groove, moderate?tenderness about the coracoid region Positive?apprehension and Positive?relocation. TECHNIQUE: Routine non-contrast MRI of the shoulder. COMPARISON: X-ray right shoulder 11/14/2019 RESULT: TENDONS: Rotator cuff tendons: -Supraspinatus: Intact tendon -Infraspinatus: Intact with tendinosis -Subscapularis: Intact tendon -Teres Minor: Intact tendon Biceps (Long head) Tendon: Intact with normal course MUSCLES: Rotator cuff muscles: -Supraspinatus: Preserved bulk and signal. -Infraspinatus: Preserved bulk and signal. -Subscapularis: Preserved bulk and signal. -Teres Minor: Preserved bulk and signal. Other muscles: Preserved signal and bulk in the deltoid. JOINTS: Glenohumeral Joint: -Labrum: Glenoid labrum appears to be intact. -Cartilage: Normal -Joint Fluid: No effusion . No synovitis. Acromioclavicular Joint: Normal BONES AND MARROW: No evidence of fracture or suspicious bone marrow replacing process OTHER: Subdeltoid/Subacromial Bursa: Normal (M25.311) Instability of right shoulder joint (primary encounter diagnosis) Comment: Patient has failed to find relief with conservative measures including physical therapy, activity modification, use of oral medication. We discussed surgical intervention today which would be arthroscopic stabilization. I described the procedure in detail the patient as well as the expected healing time of 3-6 months and physical therapy regimen following surgery, likely for much of this time. The patient would like to schedule surgery for the next available date. I discussed the risks, benefits, and alternatives to surgery today. Benefits of surgery as described were pain relief and improved function of the shoulder. Risks include those of general anesthesia including coma and , as well as surgical risks including blood loss, infection, fracture, complications from hardware, nerve injury, possible need for repeat surgery, and dissatisfaction with the procedure. I discussed once more the possible alternatives to surgery including medication, injections, and physical therapy, and the patient has elected to proceed with surgery. Patient instructed to take NSAIDs and Tylenol for pain relief at prescription strength. These medications are generally not habit-forming and can be taken an an as-needed basis for pain. No long-term monitoring for side effects is available through my office and therefore no prescription was given, but the patient may obtain a prescription for prison use through their primary care physician. Huong Arriaga MD Shoulder AND Elbow Surgeon Department of Orthopaedic Surgery [facility] CNOVon 01-23-2020 CNOV Office Visit (AGHWG1 ) GABINO MILLS ([id number]) 4 M NFR Date Time Provider Department 01/23/20 3:30 PM HUONG ARRIAGA [id number] During your visit today, we recorded the following information about you: Respiration Weight Height 21/minute 87.5 kg 1.753 m Froy Earl, Tech 01/26/2020 3:50 PM Signed Review of Systems: Ears, Nose, Throat: NO Cardiac/High Blood Pressure: NO Lungs (Asthma, Infection): YES Stomach/Digestion: NO Bladder/Bowel Problems: NO Hematologic/Bleeding Problems: NO Diabetes: NO Cancer: NO Musculoskeletal: NO Neurological: NO Psychiatric Problems: NO VAS Pain Score: On a scale of 0 to 10, 10 being the worst pain imaginable and 0 being no pain, how severe is your pain? 09/06 Huong Arriaga MD 01/26/2020 3:50 PM Signed ORTHOPAEDIC SHOULDER AND ELBOW SERVICE HISTORY AND PHYSICAL EXAM CHIEF COMPLAINT: Right shoulder pain and instability REFERRING PROVIDER: SELF HISTORY OF PRESENT ILLNESS: Gabino Mills is a 19 year old young man who presents with pain in the right shoulder. PAIN EVALUATION 01/23/2020 1521 Pain Level: 5 Pain Location: ? RT SHOULDER Description: Aching Duration Amount of Time: ? 3 Duration Units: Months Frequency: Continuous Intervention: Medication;Reposition; Relaxation Injury: Several previous dislocations, now having pain with any lifting Previous surgery: No Previous treatments: Rest, medication, physical therapy Patient otherwise has been in usual state of health. PAST MEDICAL HISTORY: PAST MEDICAL HISTORY Diagnosis Date - NEGATIVE HISTORY OF normal color vision 2012 - PM - PAST MEDICAL HISTORY OF 2003 left foot fracture - PMH - PAST MEDICAL HISTORY OF 03/03 ion hosp for croup - Routine or ritual circumcision - Unspecified asthma(493.90) PAST SURGICAL HISTORY: PAST SURGICAL HISTORY Procedure Laterality Date - CIRCUMCISION,CLAMP,NEW BORN SOCIAL HISTORY: Social History Tobacco Use - Smoking status: Passive Smoke Exposure - Never Smoker - Smokeless tobacco: Never Used - Tobacco comment: household members smoke outside Substance Use Topics - Alcohol use: No - Drug use: No ALLERGIES: ALLERGIES Allergen Reactions - Seasonal Allergies Intolerance Mother states that child has itchy,watery eyes and sneezing with the change of seasons. - Augmentin [Amoxicil* Hives 11/07 - Chicot And Derivati* Unknown On elimination diet; no citrus per mother at this time MEDICATIONS: Current Outpatient Medications on File Prior to Visit Medication Sig - sertraline (ZOLOFT) 25 mg tablet Take 1 tablet by mouth once daily. - omeprazole (PRILOSEC) 20 mg capsule Take 1 capsule by mouth once daily. - ondansetron orally disintegrating (ZOFRAN ODT) 4 mg disintegrating tablet Take 1 tablet by mouth every 12 hours as needed. - fluticasone (FLOVENT) 44 mcg/actuation inhaler Inhale 2 Puffs as instructed twice daily. Rinse mouth and mask after use - albuterol HFA (PROVENTIL HFA, VENTOLIN HFA) 90 mcg/actuation inhaler Inhale 2 Puffs as instructed every 4 hours as needed for Wheezing/Shortness of Breath (tight cough). - albuterol (PROVENTIL) 2.5 mg /3 mL (0.083 %) nebulizer solution 1 NEBULE EVERY 4 HOURS PRN WHEEZING. TIGHT COUGH - loratadine (CLARITIN) 10 mg tablet Take 1 tablet by mouth once daily. (Patient taking differently: Take 10 mg by mouth once daily as needed. ) No current facility-administered medications on file prior to visit. PHYSICAL EXAMINATION: Resp 21 Ht 175.3 cm (5' 9) Wt 87.5 kg (193 lb) BMI 28.50 kg/m? EXAM: Shoulder Musculoskeletal Exam General Constitutional: appears stated age Labored breathing: no Psychiatric: normal mood and affect and no acute distress Neurological: alert and oriented x3 Skin: intact Lymphadenopathy: present Inspection Inspection - Right Ecchymosis: none Peripheral edema: none Atrophy: none Deformity: none Symmetry: symmetric Masses: none Skin tenting: none Prior incision: none Palpation Palpation - Right Crepitus: mild Increased warmth: none Tenderness: present Anterior shoulder: moderate Posterior shoulder: moderate Clavicle: none AC joint: none Sternoclavicular joint: none Rotator cuff: mild Greater tuberosity: mild Trapezius: mild Medial scapula: none Superior pole of scapula: none Inferior pole of scapula: none Bicipital groove: mild Proximal biceps: mild Range of Motion Range of Motion - Right Active ROM: abnormal and pain Passive ROM: abnormal and pain Active forward elevation: 140 Passive forward elevation: 150 Shoulder active abduction: 90 Passive abduction: 90 Active external rotation at side: 60 Passive external rotation at side: 60 Active external rotation in abduction: 60 Passive external rotation in abduction: 60 Active internal rotation in abduction: 40 Passive internal rotation in abduction: 40 Internal rotation: T12 Strength Strength - Right External rotation: 5/5 Internal rotation: 5/5 Abduction: 5/5 Neurovascular Neurovascular - Right Right shoulder nerve sensation is normal. Axillary nerve sensory distribution: normal Scapula Scapula - Right Position: normal Dyskinesia: none Winging: none Special Tests Special Tests - Right Rotator Cuff Signs - Right Neer's test: positive Duffy test: negative Supraspinatus: negative Belly press test: negative Painful arc test: negative Lift-off sign: negative Drop arm test: negative Biceps/naman Signs - Right Natural Bridge's test: positive Clicking/popping: negative Speed's test: positive AC Joint Signs - Right Active horizontal adduction pain: negative Single finger test: negative Instability Signs - Right Joint laxity: negative Sulcus translation: negative Anterior apprehension test: positive Anterior translation test: positive Posterior apprehension test: negative Posterior translation test: negative Relocation test: positive IMAGING: I personally reviewed the MRI of the right shoulder in the office today, and I am in agreement with the radiologist's interpretation with the following modifications: None * * *Final Report* * * DATE OF EXAM: Jan 15 2020 ?8:28AM ? [facility] ? 0240 ?- ?MRI SHOULDER WO IVCON RT ?/ PROCEDURE REASON: Right shoulder pain, unspecified chronicity ?? ? * * * * Physician Interpretation * * * * ?EXAMINATION: ?MRI SHOULDER WO IVCON RT HISTORY: ?Right shoulder pain, unspecified chronicity NKI No sx Pain AND limited rom rt shoulder Right shoulder pain, unspecified chronicity ? ?Mild?tenderness about the bicipital groove, moderate?tenderness about the coracoid region Positive?apprehension and Positive?relocation. TECHNIQUE: Routine non-contrast MRI of the shoulder. COMPARISON: X-ray right shoulder 11/14/2019 RESULT: TENDONS: Rotator cuff tendons: -Supraspinatus: Intact tendon -Infraspinatus: Intact with tendinosis -Subscapularis: Intact tendon -Teres Minor: Intact tendon Biceps (Long head) Tendon: Intact with normal course MUSCLES: Rotator cuff muscles: -Supraspinatus: Preserved bulk and signal. -Infraspinatus: Preserved bulk and signal. -Subscapularis: Preserved bulk and signal. -Teres Minor: Preserved bulk and signal. Other muscles: Preserved signal and bulk in the deltoid. JOINTS: Glenohumeral Joint: -Labrum: Glenoid labrum appears to be intact. -Cartilage: Normal -Joint Fluid: No effusion . No synovitis. Acromioclavicular Joint: Normal BONES AND MARROW: No evidence of fracture or suspicious bone marrow replacing process OTHER: Subdeltoid/Subacromial Bursa: Normal (M25.311) Instability of right shoulder joint (primary encounter diagnosis) Comment: Patient has failed to find relief with conservative measures including physical therapy, activity modification, use of oral medication. We discussed surgical intervention today which would be arthroscopic stabilization. I described the procedure in detail the patient as well as the expected healing time of 3-6 months and physical therapy regimen following surgery, likely for much of this time. The patient would like to schedule surgery for the next available date. I discussed the risks, benefits, and alternatives to surgery today. Benefits of surgery as described were pain relief and improved function of the shoulder. Risks include those of general anesthesia including coma and , as well as surgical risks including blood loss, infection, fracture, complications from hardware, nerve injury, possible need for repeat surgery, and dissatisfaction with the procedure. I discussed once more the possible alternatives to surgery including medication, injections, and physical therapy, and the patient has elected to proceed with surgery. Patient instructed to take NSAIDs and Tylenol for pain relief at prescription strength. These medications are generally not habit-forming and can be taken an an as-needed basis for pain. No long-term monitoring for side effects is available through my office and therefore no prescription was given, but the patient may obtain a prescription for prison use through their primary care physician. Huong Arriaga MD Shoulder AND Elbow Surgeon Department of Orthopaedic Surgery [facility] Referring Provider: SELF [[id number]] Allergies As of Date: 01/23/2020 Noted Allergy Reaction SEASONAL ALLERGIES 10/14/2009 5 - Intolerance Comments: Mother states that child has itchy,watery eyes and sneezing with the change of seasons. 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] Prescriptions as of 01/23/2020 Sig: SERTRALINE 25 MG TABLET Take 1 tablet by mouth once d* OMEPRAZOLE 20 MG CAPSULE,GERMAN* Take 1 capsule by mouth once * ONDANSETRON 4 MG DISINTEGRATI* Take 1 tablet by mouth every * FLUTICASONE PROPIONATE 44 MCG* Inhale 2 Puffs as instructed * ALBUTEROL SULFATE HFA 90 MCG/* Inhale 2 Puffs as instructed * ALBUTEROL SULFATE 2.5 MG/3 ML* 1 NEBULE EVERY 4 HOURS PRN WH* LORATADINE 10 MG TABLET Take 1 tablet by mouth once d* Patient taking differently: Take 10 mg by mouth once kwabena* Problem List As Of Date 01/23/2020 Noted Resolved Croup [J05.0] 10/24/2004 07/27/2011 Esophageal reflux [K21.9] 10/24/2004 05/23/2012 Cellulitis and abscess of toe, unspecified [L03*11/03/2009 07/27/2011 Asthma [J45.909] 05/22/2012 Epididymitis [N45.1] 08/13/2014 Moderate persistent asthma without complication* 8 Body mass index equal to or greater than 95th p*12/05/2018 Sprain of shoulder, right [S43.401A] 11/24/2019 Encounter Status:Closed by HUONG ARRIAGA MD on 01/26/20 [facility] PROGRESSon 01-23-2020 PROGRESS HNO ID: [id number] Author: Froy Earl (Tech) Service: ? Author Type: Paint Mixer Type: Progress Notes Filed: 01/26/2020 3:50 PM Note Text: Review of Systems: Ears, Nose, Throat: NO Cardiac/High Blood Pressure: NO Lungs (Asthma, Infection): YES Stomach/Digestion: NO Bladder/Bowel Problems: NO Hematologic/Bleeding Problems: NO Diabetes: NO Cancer: NO Musculoskeletal: NO Neurological: NO Psychiatric Problems: NO VAS Pain Score: On a scale of 0 to 10, 10 being the worst pain imaginable and 0 being no pain, how severe is your pain? 09/06 Normal [facility] ABDOMEN 1 VIEWon 06-12-2018 ABDOMEN 1 VIEW PROCEDURE: ABDOMEN 1 VIEW CLINICAL HISTORY: abdominal pain for 2 weeks, constipation COMPARISON: None. IMPRESSION: Moderate amount of stool is seen throughout the colon. The bowel gas pattern apears nonobstructive. There is no free air. Lung bases are clear. This report has been created using voice recognition software Signed by: Dr. Yimi Florence at 06/11/2018 22:47 Normal [facility] Amylaseon 06-12-2018 Amylase enzyme act/vol 50 U/L Normal 28-100 [facility] Comment on above: Performed By: #### A MYL #### [place] [address] C-Reactive Proteinon 019 CRP mass conc mg/L Normal 0.0-1.0 [facility] Comment on above: Result Comment: CRP determinations in neonates should be interpreted with caution. CRP may be elevated in circumstances not associated with inflammation (e.g. difficult delivery, pneumothorax). In premature neonates CRP levels may not rise to abnormal levels even if sepsis is present; some speculate that immature liver function decreases the ability to generate a CRP response. Performed By: #### C RP #### [place] [address] Comp Metabolic Panelon 06-12 Albumin mass conc 4.3 g/dL Normal 3.2-4.5 [facility] Comment on above: Performed By: #### C MP #### [place] [address] ALP enzyme act/vol 92 U/L Normal 52-171 [facility] Comment on above: Performed By: #### C MP #### [address], [place] [id number] ALT enzyme act/vol 43 U/L High 0-41 [facility] Comment on above: Performed By: #### C MP #### [address] [id number] AST enzyme act/vol 30 U/L Normal 0-37 [facility] Comment on above: Performed By: #### C MP #### [address] [address] Bili,Total 0.6 mg/dl Normal 0.0-1.0 [facility] Comment on above: Result Comment: Premature : 1 Day 1.0-6.0 mg/dl 2 Day 6.0-8.0 mg/dl 3-5 Day 10.0-15.0 mg/dl Performed By: #### C MP #### [address] [address] Calcium mass conc 9.5 mg/dL Normal 7.6-11.0 [facility] Comment on above: Performed By: #### C MP #### [address] [id number] Chloride molar conc 107 mmol/L Normal 96-108 [facility] Comment on above: Performed By: #### C MP #### [address] [address] CO2 molar conc 21.4 mmol/L Low 22.0-29.0 [facility] Comment on above: Performed By: #### C MP #### [address] [id number] Creatinine mass conc 0.64 mg/dL Low 0.70-1.20 [facility] Comment on above: Result Comment: Premature 0.3-1.0 mg/dL Performed By: #### C MP #### [address] [place] [address] Glucose mass conc 98 mg/dL Normal 70-99 [facility] Comment on above: Result Comment: Criteria for Diagnosis of Diabetes(Effective 10/03/10): Fasting specimen (no caloric intake for at least 8 hours). <100 mg/dl Normal 100-125 mg/dl Increased Risk for Diabetes >125 mg/dl Diagnostic for Diabetes Random Glucose (any time of day without regard to last meal). >=200 mg/dl plus Classic Symptoms of Diabetes Performed By: #### C MP #### [address] [address] Potassium molar conc 3.8 mmol/L Normal 3.3-5.1 [facility] Comment on above: Performed By: #### C MP #### [address] [address] Protein mass conc 7.4 g/dL Normal 5.9-8.4 [facility] Comment on above: Performed By: #### C MP #### [address] [address] Sodium molar conc 140 mmol/L Normal 133-145 [facility] Comment on above: Performed By: #### C MP #### [address] [address] Urea nitrogen mass conc 16 mg/dL Normal 4-19 [facility] Comment on above: Performed By: #### C MP #### [address] [address] Complete Blood Counton 06-12 Differential Complete Manual Normal [facility] Comment on above: Performed By: #### C BC #### [address] [id number] Erythrocyte distribution width Ratio (RBC) 11.9 % Normal 0.0-14.4 [facility] Comment on above: Performed By: #### C BC #### [address] [address] Hematocrit Volume Fraction (Bld) 44.1 % Normal 36.0-47.0 [facility] Comment on above: Performed By: #### C BC #### [address] [id number] Hemoglobin mass conc (Bld) 15.2 g/dL Normal 13.0-15.2 [facility] Comment on above: Performed By: #### C BC #### [address] [id number] Immature granulocytes/100 WBC (Bld) 0.40 % Normal [facility] Comment on above: Result Comment: Oxana ture Granulocyte Percent includes promyelocytes, myelocytes, and metamyelocytes. IG% > 1.0 indicates a left shift is present. With automated differentials, bands are included in the neutrophil count and not in the Immature Granulocyte Percent. Performed By: #### C BC #### [address] [address] MCH Entitic mass (RBC) 29.1 pg Normal 25.0-35.0 [facility] Comment on above: Performed By: #### C BC #### [address] [address] MCHC mass conc (RBC) 34.5 % Normal 31.0-37.0 [facility] Comment on above: Performed By: #### C BC #### [address] [id number] MCV Entitic volume (RBC) 84.3 fL Normal 78.0-96.0 [facility] Comment on above: Performed By: #### C BC #### [address] [id number] Nucleated RBC/100 WBC Ratio (Bld) 0.0 % Normal -1.0-0.0 [facility] Comment on above: Performed By: #### C BC #### [address] [id number] Platelet mean volume Entitic volume (Bld) 9.4 fL Normal [facility] Comment on above: Result Comment: MPV is platelet range and age dependent Performed By: #### C BC #### [address] [address] Platelets #/vol (Bld) 394 10*3/uL Normal 150-450 [facility] Comment on above: Performed By: #### C BC #### [address] [address] RBC #/vol (Bld) 5.23 10E12/L High 4.50-5.10 [facility] Comment on above: Performed By: #### C BC #### [address] [address] WBC #/vol (Bld) 10.4 10*3/uL Normal 4.5-13.0 [facility] Comment on above: Performed By: #### C BC #### [address] [address] ESRon 06-12-2018 ESR Velocity (Bld) 1 mm Normal [facility] Comment on above: Performed By: #### S RATE #### [address] [address] Lipaseon 06-12-2018 Lipase enzyme act/vol 23 U/L Normal 16-63 [facility] Comment on above: Performed By: #### L IPAS #### [address] [address] Manual Differentialon 2018 Absolute Neutrophil No. 4.6 Normal [facility] Comment on above: Performed By: #### M DIFF #### [facility] of [address] [address] Band form neutrophils/100 WBC (Bld) 0 % Low 5-11 [facility] Comment on above: Performed By: #### M DIFF #### [facility] of [address] [address] Cell Morphology Normal Normal [facility] Comment on above: Performed By: #### M DIFF #### [address] [address] Lymphocytes/100 WBC (Bld) 44 % Normal 25-45 [facility] Comment on above: Performed By: #### M DIFF #### [address] [address] Metamyelocytes 0 % Normal 0-0 [facility] Comment on above: Performed By: #### M DIFF #### [address] [address] Monocytes/100 WBC (Bld) 12 % High 3-6 [facility] Comment on above: Performed By: #### M DIFF #### [address] [address] Myelocytes 0 % Normal 0-0 [facility] Comment on above: Performed By: #### M DIFF #### [facility] of [address] [address] Protein mass conc 0 % Normal 0-0 [facility] Comment on above: Performed By: #### M DIFF #### [facility] of [address] [address] Segmented neutrophils/100 WBC (Bld) 44 % Normal 34-64 [facility] Comment on above: Performed By: #### M DIFF #### [facility] of [address] [address] US ABDOMEN LIMITEDon 019 US ABDOMEN LIMITED CLINICAL HISTORY: RL Q pain, 2 weeks duration and unchanged COMPARISON: None. TECHNIQUE: Graded compression ultrasound was performed in the potential locations of the appendix. FINDINGS: LIMITATIONS: Body habitus limits detail. TENDER: The patient exhibited tenderness during the study in the right lower quadrant. VISUALIZATION: The appendix was NOT visualized. FREE FLUID: None seen. FLUID COLLECTION: None seen. ECHOGENIC FAT: None seen. LYMPH NODES: None seen. IMPRESSION: Non-visualized appendix. No secondary findings of appendicitis. Appy-Score 3. Diana SC et al., Development and validation of an ultrasound scoring system for children with suspected acute appendicitis, Pediatr Radiol (2015) 45:5946-5267. This report has been created using voice recognition software Signed by: Dr. Yimi Florence at 06/11/2018 22:51 Normal [facility] ED Provider Progress Noteon 06-11-2018 Sales Development Executive Authentication Interface Message Text Gabino [place] : 2000 Chief Complaint Patient presents with Abdominal Pain Allergies Allergen Reactions Augmentin [Amoxicillin-Pot Clavulanate] Hives DOS: 06/11/2018 This is a 17 y/o male who presents from home with abdominal pain. Symptoms began ~2 weeks ago. Patient states he was previously feeling well prior to symptom onset. He went to bed and awoke from sleep in the middle of the night with right sided abdominal pain that has moved to his umbilicus. Pain continued during the day and has been constant since onset. Worsens with standing, walking, and lying on the right side. Improves with lying flat on back and sitting up in bed. Mom took him to [facility] ~10 days ago, treated initially with morphine with relief of pain then tylenol. Mom states he had an abdominal CT scan and lab work done which was normal, then discharged home. He followed up at PCP office, who ordered an US abdomen which was normal (per mom). His symptoms continued and has remained constant. He last saw PCP 2 days ago who recommended he come to [facility] ER for evaluation if symptoms did not improve. Mom last gave him tylenol more than 24 hours ago with minimal relief. His current pain level is 8/10. Abdominal pain has been associated with loss of appetite and intermittent nb nb emesis, states over the past 2 weeks he has vomited 4 times. Denies constipation, diarrhea, or blood in stool. Denies fever, chills. He has missed 4 days of school. He has no prior history of abdominal pain. He has a history of asthma, denies exacerbation. Review of Systems Constitutional: Positive for appetite change. Negative for chills, fatigue and fever. HENT: Negative for trouble swallowing. Respiratory: Negative for chest tightness and shortness of breath. Cardiovascular: Negative for chest pain and leg swelling. Gastrointestinal: Positive for abdominal pain and vomiting. Negative for abdominal distention, anal bleeding, constipation, diarrhea, nausea and rectal pain. Genitourinary: Negative for decreased urine volume, difficulty urinating, discharge, dysuria, flank pain, genital sores and penile pain. Musculoskeletal: Negative for back pain. Skin: Negative for color change and rash. Past Medical History: Diagnosis Date Uncomplicated asthma History reviewed. No pertinent surgical history. Pediatric History Patient Guardian Status Mother: DAFNEJUANI Other Topics Concern Behavioral problems Not Asked Interpersonal relationships Not Asked Sad or not enjoying activities Not Asked Suicidal thoughts Not Asked Poor school performance Not Asked Reading difficulties Not Asked Speech difficulties Not Asked Writing difficulties Not Asked Inadequate sleep Not Asked Excessive TV viewing Not Asked Excessive video game use Not Asked Inadequate exercise Not Asked Sports related Not Asked Poor diet Not Asked Poor oral hygiene Not Asked Bike safety Not Asked Vehicle safety Not Asked Social History Narrative Not on file ED Triage Vitals Date and Time Temp Temp src Pulse Resp BP SpO2 Weight User 06/11/18 1800 36.8 C (98.2 F) Temporal 95 20 126/67 100 % 90.1 kg KAYLI Physical Exam Constitutional: He is oriented to person, place, and time. He appears well-developed and well-nourished. HENT: Head: Normocephalic and atraumatic. Mouth/Throat: Oropharynx is clear and moist. Eyes: EOM are normal. Cardiovascular: Normal rate, regular rhythm, normal heart sounds and intact distal pulses. No murmur heard. Pulmonary/Chest: Effort normal. No respiratory distress. He has no wheezes. He exhibits no tenderness. Abdominal: Soft. Normal appearance and bowel sounds are normal. He exhibits no distension and no ascites. There is no hepatosplenomegaly. There is tenderness in the right lower quadrant and periumbilical area. There is no rigidity, no rebound, no guarding, no CVA tenderness and no tenderness at McBurney's point. No hernia. Abdominal stria present Neurological: He is alert and oriented to person, place, and time. Skin: Skin is warm and dry. No erythema. Nursing note and vitals reviewed. Procedures MDM Number of Diagnoses or Management Options Abdominal pain, right lower quadrant: new, needed workup Mesenteric adenitis: new, needed workup Diagnosis management comments: 17 y/o male presents with abdominal pain. Reviewed outside records after mom signed release. He was diagnosed with mesenteteric adenitis on 06/04/18 at [facility], CT abdomen negative for signs of acute appendicitis, prescribed prednisone for 3 day burst. He then followed up at PCP office, diagnosed with constipation in addition to mesenteric adenitis. Symptoms not improving after 2 weeks. Patient treated with zofran and toradol IV with mild relief of his symptoms. Obtained repeat labs which were not significant for acute disturbances, no leukocytosis or elevated inflammatory markers. US abdomen negative for acute appendicitis. KUB negative for signs of obstruction or acute process. Did not repeat CT abdomen as this was recently done 1 week ago, would not contribute to his management and would add increased risk of radiation exposure. Patient stable for discharge home, prescriptions for aleve and zofran provided. Education and counseling provided regarding mesenteric adenitis. ED Course: Diagnosis' considered: Labs/Radiology: Consults: No orders of the defined types were placed in this encounter. Medical Record/Transferring Institution Record: Treatment/Reassessment : Medical Decision Making as of Jun 12 17 Tue Jun 11, 2018 2154 Attending Note: Resident physician's history & physical exam included in this note discussed in person. Pertinent history & physical exam performed by me. 17 yo to ED with 2 weeks of abdominal pain RLQ to periumbilical--constan t crampy. Sen at [facility] ED may 5, labs normal, CT abdomen with mesenteric LN; treated with toradol and zofran. FU with PMD, EBV titers and US normal. To ED this evening because pain continues with intermittent vomiting & he is missing baseball conditioning. They have not been treating with NSAIDS or zofran. Decreased po fluid intake, poor activity level, missing school. No fevers. In ED alert and talkative, holding belly with discomfort. Normal VS. MM tachy. OP with no erythema or exudate. Neck supple with no LA. Lungs CTA with good aeration to bses. CV RRR. Abd soft with pain on percussion periumbilical & RLQ area, non epigastric/suprapubic/ flanks. No guarding. ED course: Reviewed with mom and Gabino expected prolonged course for mesenteric adenitis requiring NSAIDS, zofran and fluids. In ED with recheck labs and US RLQ. They voice understanding. MD Kwesi [RL] Medical Decision Making User Index [RL] Theo Hill MD Diagnosis to highest level of medical certainty/plan: Final diagnoses: [R10.31] Abdominal pain, right lower quadrant [I88.0] Mesenteric adenitis Attending Note: Resident physician's history & physical exam included in this note discussed in person. Pertinent history & physical exam performed by me. See above MDM note completed by me at time of visit. Care transferred to Dr. Jose Watkins to fu on labs and US to ensure no complications from mesenteric adenitis and determine disposition. MD Kwesi I received sign out at 2300 pending US results. US done and did not visualize the appendix, but had no secondary signs of appendicitis. Family was comfortable with discharge to home and no repeat CT scan. He was discharged home in stable condition. Normal [facility] ESRon 06-11-2018 ESR Velocity (Bld) ----- Normal [facility] Comment on above: Result Comment: Male Female Child 0-13 Child 0-13 Adult 0- 9 Adult 0-20 Performed By: #### S RATE #### [address] [address] eGFRon 06-11-2018 GFR/1.73 sq M.predicted MDRD vol rate/area see below Normal [facility] Comment on above: Result Comment: Refe rence range: > 3 months: >90 ml/min/1.73m^2 Ref. Range change effective 07/23/2017 Unable to calculate EGFR; height not available. Performed By: #### E GFR #### [address] [id number] Vital Signs Date Time Vital Sign Value Performing Clinician [facility] 2021 10:04-0400 Body height 178.5 cm Jackeline Salinas MD Work Phone: [facility] 2021 10:04-0400 Body mass index (BMI) [Percentile] Per age and sex 93.95 % Jackeline Salinas MD Work Phone: [facility] 2021 10:04-0400 Body temperature 97.9 [degF] Jackeline Salinas MD Work Phone: [facility] 2021 10:04-0400 Body weight 92.7 kg Jackeline Salinas MD Work Phone: [facility] 2021 10:04-0400 Diastolic blood pressure 70 mm[Hg] Jackeline Salinas MD Work Phone: [facility] 2021 10:04-0400 Heart rate 64 /min Jackeline Salinas MD Work Phone: [facility] 2021 10:04-0400 Respiratory rate 12 /min Jackeline Salinas MD Work Phone: [facility] 2021 10:04-0400 Systolic blood pressure 132 mm[Hg] Jackeline Salinas MD Work Phone: [facility] Encounters Encounter Date Encounter Type Care Provider Facility Start: 2021 End: 2021 Patient encounter procedure Jackeline Salinas MD Work Phone: [facility] Comment on above: Anxiety and depressi on (Primary Dx) Start: 08-16-2021 ambulatory Jackeline Salinas MD Work Phone: [facility] Comment on above: Depression Start: 08-15-2021 Telephone encounter Jackeline ortiz MD Work Phone: [facility] Comment on above: Depression Procedures Date Procedure Procedure Detail Performing Clinician Start: 2021 Adult depression screening assessment Jackeline Salinas MD Work Phone: Start: 01-09-2020 Adult depression screening assessment Jackeline Salinas MD Work Phone: Plan of Treatment Date Care Activity Detail Author Start: 11-25-2024 Urine microalbumin profile DTA P,TDAP,TD (7 - Td or Tdap) [facility] Start: 2022 Adult depression scr eening assessment DEPRESSION SCREENING [facility] Start: 2022 ANNUAL PCP TEAM TIE FASTENER ALEJANDRA DISEASE VISIT ANNUAL PCP TEAM CHRONIC DISEASE VISIT [facility] Start: 12-29-2021 Influenza vaccination INFLUENZA (Sea son Ended) [facility] Start: 03-05-2021 ANNUAL PCP TEAM TIE FASTENER ALEJANDRA DISEASE VISIT ANNUAL PCP TEAM CHRONIC DISEASE VISIT [facility] Start: 01-09-2021 ASTHMA ACTION PLAN ASTHMA ACTION [place] N [facility] Start: 01-08-2021 Adult depression scr eening assessment DEPRESSION SCREENING [facility] Start: 01-08-2021 ASTHMA CONTROL TEST ASTHMA CONTROL T EST [facility] Start: 2020 HEPATITIS C SCREENING HEPATITIS C SC REENING [facility] Start: 2020 HIV SCREENING HIV SCREENING [facility] Start: 2020 SPIROMETRY SPIROMETRY [facility] Start: 2016 PEDS TO ADULT TRANSI TION ANNUAL ASSESSMENT PEDS TO ADULT TRANSITION ANNUAL ASSESSMENT [facility] Start: 2014 PEDS TO ADULT TRANSI TION INITIAL DISCUSSION PEDS TO ADULT TRANSITION INITIAL DISCUSSION [facility] Start: 2012 MENINGOCOCCAL B: Con farm technician based on risk (1 of 2 - Risk Bexsero 2-dose series) MENINGOCOCCAL B: Consider based on risk (1 of 2 - Risk Bexsero 2-dose series) [facility] Start: 08-19-2007 COVID-19 VACCINE (1) COVID-19 VACCIN E (1) [facility] Immunizations Immunization Date Immunization Notes Care Provider Fa cility 11-19-2018 human papilloma viru s vaccine, quadrivalent Jackeline Salinas MD Work Phone: [facility] 11-19-2018 meningococcal polysaccharide (groups A, C, Y and W-135) diphtheria toxoid conjugate vaccine (MCV4P) Jackeline Salinas MD Work Phone: [facility] 11-25-2014 human papilloma viru s vaccine, quadrivalent Jackeline Salinas MD Work Phone: [facility] Work Phone: 11-25-2014 meningococcal polysaccharide (groups A, C, Y and W-135) diphtheria toxoid conjugate vaccine (MCV4P) Jackeline Salinas MD Work Phone: [facility] Work Phone: 11-25-2014 tetanus toxoid, redu maximiliano diphtheria toxoid, and acellular pertussis vaccine, adsorbed Jackeline Salinas MD Work Phone: [facility] Work Phone: 11-25-2014 varicella virus vaccine Jackeline Salinas MD Work Phone: [facility] Work Phone: 12-31-2007 diphtheria, tetanus toxoids and acellular pertussis vaccine Jackeline Salinas MD Work Phone: [facility] Work Phone: 12-31-2007 measles, mumps and rubella virus vaccine Jackeline Salinas MD Work Phone: [facility] Work Phone: 12-31-2007 poliovirus vaccine, inactivated Jackeline Salinas MD Work Phone: [facility] Work Phone: 04-03-2005 influenza virus vacc ine, unspecified formulation Jackeline Salinas MD Work Phone: [facility] 04-04-2004 pneumococcal conjuga te vaccine, 7 valent Jackeline Salinas MD Work Phone: [facility] Work Phone: 02-17-2004 influenza virus vacc ine, unspecified formulation Jackeline Salinas MD Work Phone: [facility] Work Phone: 01-20-2004 diphtheria, tetanus toxoids and acellular pertussis vaccine Jackeline Salinas MD Work Phone: [facility] Work Phone: 01-20-2004 haemophilus influenz ae type b vaccine, HbOC conjugate Jackeline Salinas MD Work Phone: [facility] Work Phone: 08-26-2003 measles, mumps and rubella virus vaccine Jackeline Salinas MD Work Phone: [facility] Work Phone: 08-26-2003 varicella virus vaccine Jackeline Salinas MD Work Phone: [facility] Work Phone: 05-25-2003 poliovirus vaccine, inactivated Jackeline Salinas MD Work Phone: [facility] Work Phone: 04-09-2003 influenza virus vacc ine, unspecified formulation Jackeline Salinas MD Work Phone: [facility] Work Phone: 03-11-2003 diphtheria, tetanus toxoids and acellular pertussis vaccine Jackeline Salinas MD Work Phone: [facility] Work Phone: 03-11-2003 haemophilus influenz ae type b vaccine, HbOC conjugate Jackeline Salinas MD Work Phone: [facility] Work Phone: 03-11-2003 hepatitis B vaccine, pediatric or pediatric/adolescent dosage Jackeline Salinas MD Work Phone: [facility] Work Phone: 03-11-2003 pneumococcal conjuga te vaccine, 7 valent Jackeline Salinas MD Work Phone: [facility] Work Phone: 2002 diphtheria, tetanus toxoids and acellular pertussis vaccine Jackeline Salinas MD Work Phone: [facility] Work Phone: 2002 haemophilus influenz ae type b vaccine, HbOC conjugate Jackeline Salinas MD Work Phone: [facility] Work Phone: 2002 pneumococcal conjuga te vaccine, 7 valent Jackeline Salinas MD Work Phone: [facility] Work Phone: 2002 poliovirus vaccine, inactivated Jackeline Salinas MD Work Phone: [facility] Work Phone: 2002 diphtheria, tetanus toxoids and acellular pertussis vaccine Jackeline Salinas MD Work Phone: [facility] Work Phone: 2002 haemophilus influenz ae type b vaccine, HbOC conjugate Jackeline Salinas MD Work Phone: [facility] Work Phone: 2002 pneumococcal conjuga te vaccine, 7 valent Jackeline Salinas MD Work Phone: [facility] Work Phone: 2002 poliovirus vaccine, inactivated Jackeline Salinas MD Work Phone: [facility] Work Phone: 2002 hepatitis B vaccine, pediatric or pediatric/adolescent dosage Jackeline Salinas MD Work Phone: [facility] Work Phone: 2002 hepatitis B vaccine, pediatric or pediatric/adolescent dosage Jackeline Salinas MD Work Phone: [facility] Work Phone: Payers Date Payer Category Payer Private Health Insurance EKATERINA GALVE[employer] OAP [id number] 2020-Present [phone] [address] [place] [address] Open Access [id number] 2016 Medicaid [facility] [id number] 2016-Present [phone] [address] [place] [address] Medicaid [id number] 2012 Unknown [employer] PPO OOS [id number] 2012-Present [phone] [address] [place] [address] PPO [id number] Social History Date Type Detail Facility Start: 08-05-2014 Tobacco smoking stat us NHIS Never smoked tobacco [facility] Start: 08-05-2014 Tobacco use and exposure Smoke less tobacco non-user [facility] Start: 03-23-2020 End: 2021 Alcohol intake Current non-drinker of alcohol (finding) [facility] Start: 08-10-2014 Tobacco Comment household memb ers smoke outside [facility] Start: 2002 Sex Assigned At Male [facility] Start: 08-08-2021 End: 2021 Exposure to SARS-CoV-2 (event) Not sure [facility] Medical Equipment Procedure Code Equipment Code Equipment Origin al Text Equipment Identifier Dates [place] Pushlock 2.9mm Short Biocomposite 12.5mm Suture Cannulated Eyelet - [id number] Start: 02-09-2020 Progress note 2021 Note Date & Type Note Facility 2021 Note HNO ID: [id number] Author: Jackeline Salinas MD Service: ? Author Type: Physician Type: Progress Notes Filed: 08/19/2021 8:51 AM Note Text: CC-Depression (Seen Crescencio Forde yesterday and he recommended to come in too get started on medication) HPI 21 year-old here for treatment of depression and anxiety. Patient has had anxiety for several years but over the past 6 months has also started to experience depression symptoms. He has been working with psychologist Crescencio Gan, for therapy and is seeing him every other week. He has been in therapy with him for a few months. Recently they discussed starting a depression medication for him He has not wanted to start medications in the past but at this point does feel like it would be helpful. He has not had any suicide attempts. Occasionally he has had some suicidal ideation, last was about a week and a half ago. He does not have a plan for suicide. Patient graduated from high school and is currently working full-time at [employer]. Patient has had the following symptoms of depression for more than 2 weeks. 1.Depressed mood (feels sad, empty, hopeless (irritability) Yes. 2.Diminished interest in almost all activities most all days (apathy) Yes. 3.Significant weight loss or weight gain, decrease or increase in appetite daily No. 4.Difficulty falling asleep or staying asleep, or other sleep problems NA. 5.Psychomotor agitation or retardation?observed by others NA. 6.Fatigue or loss of energy most days Yes. 7.Feelings of worthlessness this or excessive or inappropriate guilt Yes. 8.Diminished ability to think or concentrate NA. 9. Recurrent thoughts of (not fear of dying) recurrent suicidal ideation without a specific plan or suicide attempt or specific plan for committing suicide No. Patient has had the following symptoms of anxiety occurring most days for over 6 months: Excessive anxiety or worry about many things including school, work or other?Yes. Are the above symptoms causing significant distress or impairment in social, occupational or academic areas? Yes. Any other reason for above symptoms (substance abuse, other medical condition)? NA. Other any other depressive disorder in patient? ( ex. Delusional disorder, schizophrenia etc. ) No. Any other anxiety disorder impatient (PTSD, anorexia, separation anxiety, situational anxiety) Family history?strong family history of anxiety and depression. No schizoaffective or bipolar disorders in the family. FAMILY HISTORY Problem Relation Age of Onset - Diabetes Paternal Grandfather - Hypertension Maternal Grandfather in 2011 - other (Rodriguez Parkinson White) Maternal Grandfather IMP Anxiety and depression (primary encounter diagnosis) PLAN Patient has signed medical release for communication with Crescencio Gan office. We have called and left a message for them to send us his medical records The following assessments were completed, scored and reviewed with patient and family PHQ9- 10 FABIO 7- 10 Reviewed concept of depression and anxiety as biochemical imbalance of neurotransmitters and rationale for treatment. Instructed patient to contact office or [id number] after-hours promptly should condition worsen or any new symptoms appear. Reviewed choice of SSRI or SNRI. Discussed side effects, expected length of treatment, onset of action and serotonin withdrawal syndrome. Discussed in detail with patient and parent the FDA black box warning regarding the risk of increased suicidal ideation after starting on an SSRI in adolescents and patient agreed she would communicate this with parents, myself or other trusted adult if she felt this was happening. If applicable, reviewed suicide precautions, suicide risks and provided emergency numbers for [facility] psychiatric intake response Center ([facility]), [facility] 24 hour response number and suicide text [facility] Psychotherapy recommended: Yes. Return visit in 3 week(s). Jackeline Salinas MD I spent a total of 40 minutes on the date of the service which included preparing to see the patient, [id number] patient care, completing clinical documentation, obtaining and/or reviewing separately obtained history, performing a medically appropriate examination, counseling and educating the patient/family/caregiver, ordering medications, tests, or procedures, communicating with other HCPs (not separately reported), independently interpreting results (not separately reported), communicating results to the patient/family/caregiver and care coordination (not separately reported). Feeling nervous, anxious, or on edge 2 Over half the days Not being able to stop or control worrying 1 Several days Worrying too much about different things 1 Several days Trouble relaxing 2 Over half the days Being so restless that it's hard to sit still 1 Several days Being easily annoyed o (more content not included)... [facility] Instructions 2021 Patient Instructions Note Date & Type Note Facility 2021 Instructions Jackeline Salinas MD - 2021 10:19 AM EDT .Selective serotonin reuptake inhibitors (SSRIs) are the most commonly prescribed antidepressants. They can ease symptoms of moderate to severe depression, are relatively safe and typically cause fewer side effects than other types of antidepressants do. SSRIs ease depression by increasing levels of serotonin in the brain. Serotonin is one of the chemical messengers (neurotransmitters) that carry signals between brain cells. SSRIs block the reabsorption (reuptake) of serotonin in the brain, making more serotonin available. SSRIs are called selective because they seem to primarily affect serotonin, not other neurotransmitters. SSRIs also may be used to treat conditions other than depression, such as anxiety disorders. The Food and Drug Administration (FDA) has approved these SSRIs to treat depression: Citalopram (Celexa) Escitalopram (Lexapro) Fluoxetine (Prozac) Paroxetine (Paxil, Pexeva) Sertraline (Zoloft) Vilazodone (Viibryd) Fluvoxamine, an SSRI that s approved by the FDA to treat obsessive-compulsive disorder, is sometimes used to treat depression. All SSRIs work in a similar way and generally can cause similar side effects, though some people may not experience any. Many side effects may go away after the first few weeks of treatment, while others may lead you and your doctor to try a different drug. If you can't tolerate one SSRI, you may be able to tolerate a different one, as SSRIs differ in chemical makeup. Possible side effects of SSRIs may include, among others: Drowsiness Nausea Dry mouth Insomnia Diarrhea Nervousness, agitation or restlessness Dizziness Sexual problems, such as reduced sexual desire or difficulty reaching orgasm or inability to maintain an erection (erectile dysfunction) Headache Blurred vision Taking your medication with food may reduce the risk of nausea. Also, as long as your medication doesn't keep you from sleeping, you can reduce the impact of nausea by taking it at bedtime. Which antidepressant is best for you depends on a number of issues, such as your symptoms and any other health conditions you may have. Ask your doctor and pharmacist about the most common possible side effects for your specific SSRI and read the patient medication guide that comes with the prescription. SSRIs are generally safe for most people. However, in some circumstances they can cause problems. For example, high doses of citalopram may cause dangerous abnormal heart rhythms, so doses over 40 milligrams (mg) a day should be avoided, according to the FDA and the runway model. They also recommend a maximum dose of 20 mg for people over age 60. Other issues to discuss with your doctor before you take an SSRI include: Drug interactions. When taking an antidepressant, tell your doctor about any other prescription or [id number]-[id number] medications, herbs or other supplements you're taking. Some antidepressants can cause dangerous reactions when combined with certain medications or herbal supplements. Serotonin syndrome. Rarely, an antidepressant can cause high levels of serotonin to accumulate in your body. Serotonin syndrome most often occurs when two medications that raise the level of serotonin are combined. These include other antidepressants, certain pain or headache medications, and the herbal supplement Silas's wort. Signs and symptoms of serotonin syndrome include anxiety, agitation, sweating, confusion, tremors, restlessness, lack of coordination and a rapid heart rate. Seek immediate medical attention if you have any of these signs or symptoms. Antidepressants and . Talk to your doctor about the risks and benefits of using specific antidepressants. Some antidepressants may harm your baby if you take them during or while you're breast-feeding. If you're taking an antidepressant and you're considering getting , talk to your doctor about the possible risks. Don't stop taking your medication without contacting your doctor first, as stopping might pose risks for you. Most antidepressants are generally safe, but the FDA requires that all antidepressants carry black box warnings, the strictest warnings for prescriptions. In some cases, children, teenagers and young adults under 25 may have an increase in suicidal thoughts or behavior when taking antidepressants, especially in the first few weeks after starting or when the dose is changed. Anyone taking an antidepressant should be watched closely for worsening depression or unusual behavior. If you or someone you know has suicidal thoughts when taking an antidepressant, immediately contact your doctor or get emergency help. Keep in mind that antidepressants are more likely to reduce suicide risk in the long run by improving mood. SSRIs aren't considered addictive. However, stopping antidepressant treatment abruptly or missing several doses can cause withdrawal-like symptoms. This is sometimes called discontinuation syndrome. Work with your doctor to gradually and safely decrease your dose. Withdrawal-like symptoms can include: General feeling of uneasiness Nausea Dizziness Lethargy Flu-like symptoms People may react differently to the same antidepressant. For example, a particular drug may work better or not as well for you than for another person. Or you may have more, or fewer, side effects from taking a specific antidepressant than someone else does. Inherited traits play a role in how antidepressants affect you. In some cases, where available, results of special blood tests may offer clues about how your body may respond to a particular antidepressant. However, other variables besides genetics can affect your response to medication. When choosing an antidepressant, your doctor takes into account your symptoms, any health problems, other medications you take and what has worked for you in the past. Typically, it may take several weeks or longer before an antidepressant is fully effective and for initial side effects to ease up. You may need to try several dose adjustments or different antidepressants before you find the right one, but hang in there. With patience, you and your doctor can find a medication that works well for you. documented in this encounter [facility] History of Present illness Narrative 2021 Jackeline Salinas MD - 2021 10:14 AM EDT Note Date & Type Note Facility 2021 History of Presen t illness Narrative CC-Depression (Seen Crescencio Forde yesterday and he recommended to come in too get started on medication) HPI 21 year-old here for treatment of depression and anxiety. Patient has had anxiety for several years but over the past 6 months has also started to experience depression symptoms. He has been working with psychologist Crescencio Gan, for therapy and is seeing him every other week. He has been in therapy with him for a few months. Recently they discussed starting a depression medication for him He has not wanted to start medications in the past but at this point does feel like it would be helpful. He has not had any suicide attempts. Occasionally he has had some suicidal ideation, last was about a week and a half ago. He does not have a plan for suicide. Patient graduated from high school and is currently working full-time at [employer]. Patient has had the following symptoms of depression for more than 2 weeks. 1.Depressed mood (feels sad, empty, hopeless (irritability) Yes. 2.Diminished interest in almost all activities most all days (apathy) Yes. 3.Significant weight loss or weight gain, decrease or increase in appetite daily No. 4.Difficulty falling asleep or staying asleep, or other sleep problems NA. 5.Psychomotor agitation or retardation observed by others NA. 6.Fatigue or loss of energy most days Yes. 7.Feelings of worthlessness this or excessive or inappropriate guilt Yes. 8.Diminished ability to think or concentrate NA. 9. Recurrent thoughts of (not fear of dying) recurrent suicidal ideation without a specific plan or suicide attempt or specific plan for committing suicide No. Patient has had the following symptoms of anxiety occurring most days for over 6 months: Excessive anxiety or worry about many things including school, work or other?Yes. Are the above symptoms causing significant distress or impairment in social, occupational or academic areas? Yes. Any other reason for above symptoms (substance abuse, other medical condition)? NA. Other any other depressive disorder in patient? ( ex. Delusional disorder, schizophrenia etc. ) No. Any other anxiety disorder impatient (PTSD, anorexia, separation anxiety, situational anxiety) Family history strong family history of anxiety and depression. No schizoaffective or bipolar disorders in the family. FAMILY HISTORY Problem Relation Age of Onset Diabetes Paternal Grandfather Hypertension Maternal Grandfather in 2011 other (Rodriguez Parkinson White) Maternal Grandfather IMP Anxiety and depression (primary encounter diagnosis) PLAN Patient has signed medical release for communication with Crescencio andrade. We have called and left a message for them to send us his medical records The following assessments were completed, scored and reviewed with patient and family PHQ9- 10 FABIO 7- 10 Reviewed concept of depression and anxiety as biochemical imbalance of neurotransmitters and rationale for treatment. Instructed patient to contact office or [id number] after-hours promptly should condition worsen or any new symptoms appear. Reviewed choice of SSRI or SNRI. Discussed side effects, expected length of treatment, onset of action and serotonin withdrawal syndrome. Discussed in detail with patient and parent the FDA black box warning regarding the risk of increased suicidal ideation after starting on an SSRI in adolescents and patient agreed she would communicate this with parents, myself or other trusted adult if she felt this was happening. If applicable, reviewed suicide precautions, suicide risks and provided emergency numbers for [facility] psychiatric intake response Center ([facility]), [facility] 24 hour response number and suicide text [place] Hotline and 656 Psychotherapy recommended: Yes. Return visit in 3 week(s). Jackeline Salinas MD I spent a total of 40 minutes on the date of the service which included preparing to see the patient, [id number] patient care, completing clinical documentation, obtaining and/or reviewing separately obtained history, performing a medically appropriate examination, counseling and educating the patient/family/caregiver, ordering medications, tests, or procedures, communicating with other HCPs (not separately reported), independently interpreting results (not separately reported), communicating results to the patient/family/caregiver and care coordination (not separately reported). Feeling nervous, anxious, or on edge 2 Over half the days Not being able to stop or control worrying 1 Several days Worrying too much about different things 1 Several days Trouble relaxing 2 Over half the days Being so restless that it's hard to sit still 1 Several days Being easily annoyed or irritable 2 Over half the days Feeling afraid as if something awful might happen 1 Several days FABIO-7 Anxiety Score 10 If you checked off any problems, how difficult have these problems made it for you to do your work, take care of things at home, or get along with other people? Somewhat difficult 1. Feeling down, depressed, irritable or hopeless? 2 - More Than Half the Days 2. Little interest or pleasure in doing things? 1 - Several Days 3. Trouble falling asleep, staying asleep, or sleeping too much? 2 - More Than Half the Days 4. Poor appetite, weight loss, or overeating? 1 - Several Days 5. Feeling tired or little energy? 2 - More Than Half the Days 6. Feeling bad about yourself-or feeling that you are a failure or that you have let yourself or your family down? 1 - Several Days 7. Trouble concentrating on things like school work, reading or watching TV? 0 - Not At All 8. Moving or speaking so slowly that other people could have notices? Or the opposite-being so fidgety or restless that you were moving around a lot more than usual? 0 - Not At All 9. Thoughts that you would be better off or of hurting yourself in some way? 1 - Several Days 10. In the past year have you felt depressed or sad most days, even if you felt okay sometimes? Yes 11. If you are experiencing any of the problems listed on this questionnaire, how difficult have these problems made it for you to do your work, take care of things at home or get along with other people? Not at all difficult 12. Has there been a time in the past month when you have had serious thoughts about ending your life? Yes 13. Have you ever tried to kill yourself or made a suicide attempt? No SCORE 10 Total Score: Depression Severity 10-14=Moderate depression (>or = to 11=Positive score) documented in this encounter [facility] Note 08-16-2021 Telephone Encounter - Kym Alonzo RN - 08/16/2021 12:18 PM EDT Note Date & Type Note Facility 08-16-2021 Miscellaneous Notes patient is seeing counselor tomorrow am, counselor recommended patient call pcp to set up appt to start meds. will sign release tomorrow while at Crescencio's office. Crisis intervention number and national suicide prevention lifeline phone numbers given as well as patient made aware that ER can be used also if feeling like he is going to harm himself. Reason for Disposition Sometimes has thoughts of suicide Answer Assessment - Initial Assessment Questions 1. CONCERN: What happened that made you call today? a lot of depression and thoughts 2. DEPRESSION SYMPTOM SCREENING: How are you feeling overall? (e.g., decreased energy, increased sleeping or difficulty sleeping, difficulty concentrating, feelings of sadness, guilt, hopelessness, or worthlessness) mix of all, some nights I can't sleep, some nights I can, not super sad, some at times, difficulty concentrating 3. RISK OF HARM - SUICIDAL IDEATION: Do you ever have thoughts of hurting or killing yourself? (e.g., yes, no, no but preoccupation with thoughts about ) - INTENT: Do you have thoughts of hurting or killing yourself right NOW? (e.g., yes, no, N/A) - PLAN: Do you have a specific plan for how you would do this? (e.g., gun, knife, overdose, no plan, N/A) at times, not currently, no 4. RISK OF HARM - HOMICIDAL IDEATION: Do you ever have thoughts of hurting or killing someone else? (e.g., yes, no, no but preoccupation with thoughts about ) - INTENT: Do you have thoughts of hurting or killing someone right NOW? (e.g., yes, no, N/A) - PLAN: Do you have a specific plan for how you would do this? (e.g., gun, knife, no plan, N/A) no 5. FUNCTIONAL IMPAIRMENT: How have things been going for you overall? Have you had more difficulty than usual doing your normal daily activities? (e.g., better, same, worse; self-care, school, work, interactions) I wouldn't say it is making it super difficult but it is more of a I don't want to get up and do it 6. SUPPORT: Who is with you now? Who do you live with? Do you have family or friends who you can talk to? mom, lives with mom, does have other friends or family to talk with also 7. THERAPIST: Do you have a counselor or therapist? Name? Crescencio Forde, last visit was 2 weeks ago, is seeing him again tomorrow 8. STRESSORS: Has there been any new stress or recent changes in your life? not that I am aware of 9. ALCOHOL USE OR SUBSTANCE USE (DRUG USE): Do you drink alcohol or use any illegal drugs? no 10. OTHER: Do you have any other physical symptoms right now? (e.g., fever) denies 11. : Is there any chance you are ? When was your last menstrual period? n/a Protocols used: [id number] documented in this encounter [facility] Note 08-15-2021 Telephone Encounter - Francesco Hawley RN - 08/15/2021 4:44 PM EDT Note Date & Type Note Facility 08-15-2021 Miscellaneous Notes Mother calls stating that patient has been having issues with depression and would like to discuss re-starting on a medication. Patient is not currently with mother. Advised that we would need patient present to perform further triage and guidance. Mother voiced understanding and will have patient call back later. Francesco Hawley RN documented in this encounter [facility] Progress note 09-20-2020 Note Date & Type Note Facility 09-20-2020 Note HNO ID: [id number] Author: Isabelle Cruz, PT Service: ? Author Type: Physical Therapist Type: Progress Notes Filed: 09/20/2020 3:56 PM Note Text: 09/20/2020 [facility] PHYSICAL THERAPY DISCONTINUANCE OF CARE Plan of Care Period: Start of Care Date: 02/16/20 Last Visit Date: 04/05/2020 Therapy Program: The following is a summary of the interventions provided for this episode of care; Therapeutic exercise and Patient/Family/Caregiver Education Assessment: The following is the goal status: Goals for Episode of Care: created on 02/16/20 through 06/18/20 Goals updated on 04/05/2020. Patrick in home exercise program. (Met) Patient will decrease pain rating by 2 points to meet minimal clinical important difference for numeric pain rating scale. (Met) Patient will increase active ROM of R wrist to symmetrical, R elbow to 0-150deg, R shoulder to 150 deg flex, abd, 75 deg ER to allow pt to to improve performance of ADLs and return to previous functional and recreational activities. (Not Met)-improving Patient will demonstrate increase in R UE strength to 4+ to 5/5 during manual muscle testing in order to improve function for leisure / recreation skills and prior functional tasks. (Not Met) Perform lifting, reaching, throwing and all prior activities with decreased report of symptoms/pain in 12-16 weeks. (Not Met) Improve postural awareness. (Met) Patient Goals: Return to previous activity level including lifitng, throwing, soccer and backyard sports. (Not Met) Based on the most recent progress report, patient was progressing as expected toward functional goals based on documented subjective information on progress and documented objective information regarding range of motion and overall function. Reason for Discontinuation of Care: Patient has not returned to therapy or scheduled additional follow-up appointments. Isabelle Cruz, PT [facility] History of Past illness Narrative 08-13-2014 Note Date & Type Note Facility 08-13-2014 History of Past i llness Narrative Problem Noted Date Resolved Date Epididymitis 08/13/2014 03/05/2020 Cellulitis and abscess of toe, unspecified 11/0307/27/2011 Croup 10/24/2004 07/27/2011 Esophageal reflux 10/24/2004 05/23/2012 documented as of this encounter (statuses as of 08/15/2021) [facility] History of Past illness Narrative 08-13-2014 Note Date & Type Note Facility 08-13-2014 History of Past i llness Narrative Problem Noted Date Resolved Date Epididymitis 08/13/2014 03/05/2020 Cellulitis and abscess of toe, unspecified 11/0307/27/2011 Croup 10/24/2004 07/27/2011 Esophageal reflux 10/24/2004 05/23/2012 documented as of this encounter (statuses as of 08/16/2021) [facility] History of Past illness Narrative 08-13-2014 Note Date & Type Note Facility 08-13-2014 History of Past i llness Narrative Problem Noted Date Resolved Date Epididymitis 08/13/2014 03/05/2020 Cellulitis and abscess of toe, unspecified 11/0307/27/2011 Croup 10/24/2004 07/27/2011 Esophageal reflux 10/24/2004 05/23/2012 documented as of this encounter (statuses as of 08/19/2021) [facility] Evaluation note Note Date & Type Note Facility Evaluation note Diagnosis Anxiety and depression- Primary Dysthymic disorder documented in this encounter [facility] Summary Purpose Family History No Family History Records FoundNo Family History Records FoundNo Family History Records Found Advance Directives No Advanced Directives Records FoundDocuments on File Type Date Recorded 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 Author Type: Nurse [employer] Type: Anesthesia Procedure Notes Filed: 02/09/2020 8:19 AM Note Text: ANESTHESIOLOGY PROCEDURE NOTE Airway General Information Procedure Start Time/Medication Administration: 02/09/2020 8:06 AM Patient location during procedure: OR Patient identity confirmed: arm band Staffing CHEF ASSISTANT: Nika Kirkland (Aprn Crna) Performed by: CHEF ASSISTANT Indications and Patient Condition Preoxygenated: yes Patient position: sniffing Manual In-Line Stabilization: No Difficult Mask: No Indications for airway management: anesthesia anesthesia circuit Method: asleep Cricoid Pressure: No Airway Accessory: oral airway (90 mm) Final Airway Details Final airway type: endotracheal airway Final Endotracheal Airway: ETT Cuffed: yes Successful intubation technique: direct laryngoscopy Endotracheal tube insertion site: oral Blade: Zoltan Blade size: #4 ETT size (mm): 7.0 Measured from: lips Measurement (cm): 22 Placement v (more content not included)... Note HNO ID: [id number] Author: Debi Kirkland (Aprn Crna) Service: ? Author Type: Nurse [employer] Sports Coach Type: Anesthesia Procedure Notes Filed: 02/09/2020 8:33 AM Note Text: ANESTHESIOLOGY PROCEDURE NOTE Peripheral Nerve Block General Information Procedure Start Time/Medication Administration: 02/09/2020 7:26 AM Procedure End time: 02/09/2020 8:33 AM Patient location during procedure: pre-op Timeout Performed Pre-procedure: timeout performed Patient identity confirmed: arm band Reason for block: post-op pain management/at surgeon's request Staffing Anesthesiologist: Franklin Obrien Performed by: anesthesiologist Preparation Sterility Preparation: hand hygiene performed prior to procedure, surgical cap used, mask used, skin prep agent completely dried prior to procedure Site Prep: Chloraprep Procedure Details Patient Position: supine Monitoring: Pulse OX, EKG and NIBP Block Type Upper Extremity: brachial plexus Approach: interscalene Laterality: right Injection Technique: single-shot Ultr (more content not included)... Additional Source Comments (unrecognized sect ion and content) No Status Records FoundNo Status Records FoundNo Status Records Found INFORMATION SOURCE (unrecogn ized section and content) DATE CREATED AUTHOR 10/04/2018 [facility] DATE CREATED AUTHOR AUTHOR'S ORGANIZ ATION 03/23/2020 [facility] DATE CREATED AUTHOR AUTHOR'S ORGANIZ ATION 08/20/[address] [facility] Source Comments (unrecognize d section and content) In the event this informatio n is protected by the Federal Confidentiality of Alcohol and Drug Abuse Patient Records regulations: The Federal rules restrict any use of the information to criminally investigate or prosecute any alcohol or drug abuse patient.[facility] the event this information is protected by the Federal Confidentiality of Alcohol and Drug Abuse Patient Records regulations: The Federal rules restrict any use of the information to criminally investigate or prosecute any alcohol or drug abuse patient.[facility] the event this information is protected by the Federal Confidentiality of Alcohol and Drug Abuse Patient Records regulations: The Federal rules restrict any use of the information to criminally investigate or prosecute any alcohol or drug abuse patient.[facility] Reason for Visit (unrecogniz ed section and content) Reason Comments Depression Reason Comments Depression Seen Crescencio Forde y esterday and he recommended to come in too get started on medication Care Teams (unrecognized sec tion and content) Chief Supply Chain Officer Relationship Specialty Start Date End Date Jackeline Salinas MD [address] [place] [address] PCP - General 02 Chief Supply Chain Officer Relationship Specialty Start Date End Date Jackeline Salinas MD [facility] [place] [address] PCP - General 02 Chief Supply Chain Officer Relationship Specialty Start Date End Date Jackeline Salinas MD [facility] [place] [address] PCP - General 02 FOR RECORDS PERTAINING TO PATIENTS WHO ARE OR HAVE BEEN ENROLLED IN A CHEMICAL DEPENDENCY/SUBSTANCEABUSE PROGRAM, SOME INFORMATION MAY BE OMITTED. This clinical summary was aggregated from multiple sources. Caution should be exercised in using it in the provision of clinical care. This summary normalizes information from multiple sources, and as a consequence, information in this document may materially change the coding, format and clinical context of patient data. In addition, data may be omitted in some cases. CLINICAL DECISIONS SHOULD BE BASED ON THE PRIMARY CLINICAL RECORDS. [facility] [employer] [facility]. provides no warranty or guarantee of the accuracy or completeness of information in this document.
[2024-12-06 16:13] VITALS: BP 128/90; PULSE 92; RESP 18; TEMP 36.6; O2SAT 99
== END 2024-12-06 16:14 | disposition home or self-care (01) ==
PROVIDERS: Emergency Provider Emergency Medicine; Visit Provider Emergency Medicine
DX: S93.401A Sprain of unspecified ligament of right ankle, initial encounter (principal); J45.909 Unspecified asthma, uncomplicated; X58.XXXA Exposure to other specified factors, initial encounter
CPT/HCPCS: 73590; 73610; 99283